=== PATIENT | female | born 1955 | race Caucasian/White ===

== ENCOUNTER 2017-01-14 12:29 | Inpatient (IN) | payer BC ==
[2017-01-14] MEDS ORDERED: ISOVUE-370 76%-LOCM 1 ML ONE (13:02)
[2017-01-14 13:06] LABS: #Eosinphils 0.1 thou/uL (0.0-0.7); #Lymphocytes 1.4 thou/uL (1.20-3.40); #Neutrophils 8.1 thou/uL (1.40-6.50); %Basophils 0.3 % (0.0-1.0); %Eosinophils 1.2 % (0.0-10.0); %Lymphocytes 13.4 % (21.0-51.0); %Monocytes 9.5 % (0.0-10.0); Hematocrit 33.7 % (36.0-47.0); Mean Platelet Volume 5.3 fL (7.4-10.4); Red Blood Cell (RBC) Count 3.89 mill/uL (4.20-5.40); White Blood Cell (WBC) Count 10.7 thou/uL (4.8-10.8)
[2017-01-14 13:30] LABS: Anion Gap 14 mmol/L (10-20); BUN (Urea Nitrogen) 10 mg/dL (9.8-20.1); Calc. Creatinine Clearance 0 mL/min (70-130); Carbon Dioxide 27 mmol/L (23-31); Chloride 99 mmol/L (98-107); Estimated GFR-MDRD Greater than 90
[2017-01-14 13:31] LABS: ALT (SGPT) 16 U/L (8-55); AST (SGOT) 13 U/L (5-34); Alkaline Phosphatase 93 U/L (40-150); Bilirubin, Total 0.6 mg/dL (0.2-1.2); CK (CPK) 29 U/L (29-168); Calcium 9.6 mg/dL (7.8-10.44); Globulin 3.7 g/dL (2.4-3.5); Lipase Less than 4 U/L (8-78); Protein, Total 7.3 g/dL (6.0-8.3)
[2017-01-14 13:35] LABS: Troponin I Less than 0.010 ng/mL (< 0.028)
--- NOTE | 2017-01-14 13:56 | RAD ---
CHEST ONE VIEW: History: Dyspnea. Chest pain. Comparison: 12-02-16 FINDINGS: Cardiac silhouette is magnified by projection. Pulmonary vasculature is unremarkable. Linear atelect asis is now present at each lung base. Mediastinum is midline with aortic calcifications. Right side d aortic arch is again demonstrated. night monitor leads overlie the chest. IMPRESSION: Interval improvement in bibasilar atelectasis. POS: LIZA
[2017-01-14] MEDS ORDERED: Metoprolol Tartrate 5 MG/5 ML VIAL ONE ×3 (15:06→18:28)
[2017-01-14] MEDS ORDERED: Ketorolac Tromethamine 30 MG/ML VIAL ONE ×2 (15:12→17:54)
--- NOTE | 2017-01-14 16:17 | CT ---
CT PULMONARY ANGIOGRAM WITH IV CONTRAST AND 3D POSTPROCESSIN01/14/17 HISTORY: Chest pain. FINDINGS: There is good contrast opacification of the pulmonary artery vasculature without filling defects to suggest pulmonary embolism. A pericardial effusion is present. There are small bilateral pleural effusions with adjacent infiltr ation/atelectatic changes (left greater than right). A right sided aortic arch and descending thorac ic aorta and aberrant left subclavian artery are seen. Prominent mediastinal lymph nodes are stable since 11/25/14. There are degenerative changes in the spine. IMPRESSION: 1. No CT evidence of pulmonary embolism. 2. 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 3. Pericardial effusion. 4. Bilateral small pleural effusions with adjacent atelectatic changes/infiltrates, left larger than right. POS: LIZA
[2017-01-14 19:11] LABS: Troponin I Less than 0.010 ng/mL (< 0.028)
[2017-01-14] MEDS ORDERED: Labetalol HCl 100 MG/20 ML VIAL SLOW IVP PRN (19:38)
[2017-01-14] MEDS ORDERED: Ondansetron HCl/PF 4 MG/2 ML Vial IVP PRN (19:52)
[2017-01-14] MEDS ORDERED: Ondansetron ODT 4 MG TAB SL PRN (19:52)
[2017-01-14 20:26] VITALS: BMI 28.0
[2017-01-14] MEDS: Atorvastatin Calcium 40 MG TAB PO SCH (21:18)
[2017-01-14] MEDS: traMADol HCl 50 MG TAB PO PRN (21:19)
[2017-01-14] MEDS: Colchicine 0.6 MG TAB PO SCH (21:24)
[2017-01-14 21:26] LABS: Troponin I Less than 0.010 ng/mL (< 0.028)
--- NOTE | 2017-01-15 01:00 | HP ---
DATE OF ADMISSION: 01/14/2017 PRIMARY CARE PHYSICIAN: Cheng Golden D.O. CHIEF COMPLAINT: Chest pain with deep breaths. HISTORY OF PRESENT ILLNESS: This is a 61-year-old female with a past medical history of h ypertension, hyperlipidemia, and GERD, who presents with chest pain for a couple of months. This armas s been worked up previously including Cardiology and no cause was found. Today, however in the [facility] room, she was found to have pericardial effusion and pleural effusion on chest CT. She does h ave chest pain with deep breaths. In the emergency room, she was found to have normal troponin leve ls as well as a normal EKG. ALLERGIES: 1. LEXAPRO. 2. EFFEXOR. MEDICATIONS: 1. Tramadol 50 mg p.o. b.i.d. p.r.n. severe pain. 2. Prilosec 20 mg p.o. daily. 3. Hydrochlorothiazide 25 mg p.o. daily. 4. Aspirin 81 mg p.o. daily. 5. Nadolol 40 mg p.o. at bedtime. 6. Clonidine 0.1 mg p.o. b.i.d. p.r.n. systolic blood pressure over 170. 7. Losartan 50 mg p.o. daily. 8. Lipitor 40 mg p.o. at bedtime. PAST MEDICAL HISTORY: 1. Hypertension. 2. Hyperlipidemia. 3. Gastroesophageal reflux disease. PAST SURGICAL HISTORY: 1. Cardiac catheterization with Dr. Streeter. 2. Total hysterectomy. FAMILY HISTORY: Coronary artery disease. SOCIAL HISTORY: She is a former smoker, quit almost 20 years ago. Denies alcohol and illicit drugs . REVIEW OF SYSTEMS: General: Denies fever, weight change, appetite change. HEENT: Denies headache , vision changes, sore throat. Skin: No rashes or lesions. Cardiovascular: Reports chest pain, e specially with deep breaths. Denies palpitations. Respiratory: Denies shortness of breath and cou gh. Gastrointestinal: Denies nausea, vomiting, abdominal pain, diarrhea, constipation. Genitourin carlin: Denies dysuria, hematuria, and discharge. Musculoskeletal: Denies joint pain and stiffness. Neurologic: Denies syncope and dizziness. PHYSICAL EXAMINATION: VITAL SIGNS: Blood pressure 188/103, pulse 95, respirations 15, oxygen saturation 94% on room air, temperature 97.3. GENERAL: Alert and oriented x3, in no acute distress. SKIN: No rashes or lesions. HEENT: Normocephalic. Pupils are equally round and reactive to light. Extraocular muscles are int act. Moist mucous membranes with a nonerythematous throat. HEART: Regular rate and rhythm. No murmurs. LUNGS: Faint friction rub on left side. No wheezes or rales. GASTROINTESTINAL: Nontender, nondistended. Bowel sounds heard throughout. MUSCULOSKELETAL: Normal strength and range of motion. NEUROLOGICAL: Cranial nerves II through XII intact. Sensation within normal limits. LABORATORY DATA: White blood cell count 10.7, hemoglobin 11.2, hematocrit 33.7, MCV 86.5, platelets 425. Sodium 136, potassium 3.8, chloride 99, carbon dioxide 27, BUN 10, creatinine 0.59, glucose 96, calc ium 9.6, total bilirubin 0.6, AST 13, ALT 68, alkaline phosphatase 93. Creatine kinase 29, CK-MB 0. 6, troponin less than 0.010, total protein 7.3, albumin 3.6, lipase normal. Chest x-ray improvement amount of bibasilar atelectasis compared to about [address] nik ws no pulmonary embolism. There is evidence of pericardial effusion and bilateral small pleural eff usions. ASSESSMENT AND PLAN: 1. Chest pain likely secondary to pericardial effusion. We will consult Cardiology. She is stable at this time. EKG is normal as well as cardiac enzymes. 2. Small bilateral pleural effusions. We will obtain some labs studies and consult Pulmonology. 3. Hypertension. Her blood pressure is elevated at this time, we will start her on her home medica tions and provide labetalol p.r.n. for systolic blood pressure greater than 180. 4. Hyperlipidemia. Continue Lipitor. 5. Gastroesophageal reflux disease. We will give pantoprazole while in the hospital. 6. Place on observation on telemetry.
[2017-01-15] MEDS: Nadolol 40 MG TAB PO SCH (05:17)
[2017-01-15] MEDS: traMADol HCl 50 MG TAB PO PRN ×4 (06:08→22:23)
[2017-01-15] MEDS ORDERED: Furosemide 40 MG/4 ML VIAL SLOW IVP SCH ×2 (08:45→13:30)
--- NOTE | 2017-01-15 08:47 | PRG ---
DATE OF SERVICE: 01/15/2017 SUBJECTIVE: This is a 61-year-old female patient with a history of hypertension and hyperlipidemia who has had onset of chest pain and shortness of breath about 6 weeks ago. She was found to have a small pericardial effusion in 11/2016. Workup has been initiated including labs and a CT, follow up with Cardiology. She over the past few weeks has been progressively worsening with increased shortness of breath, increased pain with ambulation and deep breaths. She recently saw Dr. Streeter this past week who felt like there was a rheumatological etiology causing her pain. Referral had been made, but she had not been able to see the construction management instructor yet. Over the past few days her pain worsened. She is becoming more dyspneic with dyspnea on exertion and presented to the emergency department yesterday and found to have both a pericardial effusion as well as a pleural effusion. Today, she is feeling some better with analgesia from the ER, she is ambulating in the room. She continues to have a pulse ox down to 93% on room air. OBJECTIVE: VITAL SIGNS: Temperature 99.0, pulse of 99, respirations 16, blood pressure 174 /82, pulse ox is 93% on room air. GENERAL: She is awake and alert, in no acute distress. She does have some dyspnea after walking to the bathroom. HEENT: Mucosa is moist. NECK: Supple. HEART: Regular rate and rhythm with a 2/6 systolic ejection murmur. LUNGS: With rales at the bases. ABDOMEN: Soft. EXTREMITIES: With no edema. LABORATORY: Laboratory data has been reviewed. Echocardiogram was done this morning, but is pending. Sed rate from 12/19/2016 was elevated at 28, a rheumatoid factor and TIAGO screen were negative on 11/27/2016. ASSESSMENT AND PLAN: 1. This is a 61-year-old female patient with persistent pericardial effusion, now with a pleural effusion with worsening pain and shortness of breath. I agree with admission. Awaiting echocardiogram as well as Cardiology and Pulmonary evaluation due to her decompensation of her symptoms and illness 2. Bilateral pleural effusions, await Pulmonary evaluation for potential thoracentesis versus other workup. 3. Hypertensive urgency. Doing better on IV Labetalol. We will continue her home meds as well as labetalol p.r.n. at this time. Will start Clonidine prn as well. 4. Gastroesophageal reflux disease, on pantoprazole. MTDD
[2017-01-15] MEDS ORDERED: Hydrochlorothiazide 25 MG TAB PO SCH (09:00)
[2017-01-15] MEDS ORDERED: Losartan Potassium 25 MG TAB PO SCH (09:00)
[2017-01-15] MEDS: Amlodipine 5 MG TAB PO SCH (09:09)
[2017-01-15] MEDS: Losartan Potassium 25 MG TAB PO SCH (09:10)
[2017-01-15] MEDS: Aspirin 81 mg Enteric Coated Tablet PO SCH (09:10)
[2017-01-15] MEDS: Colchicine 0.6 MG TAB PO SCH ×2 (09:10→22:01)
--- NOTE | 2017-01-15 12:52 | CON ---
DATE OF CONSULTATION: 01/15/2017 PRIMARY CARE PROVIDER: Dr. Anand [place] PRIMARY RAG PRODUCTION WORKER: Dr. Streeter REFERRING PHYSICIAN: Dr. Eulalio Pelayo REASON FOR CARDIOLOGY CONSULTATION: Pericardial effusion. HISTORY OF PRESENT ILLNESS: Ms. Muse is a 61-year-old female with a past medical history of hypertension and hyperlipidemia. The patient presented to ER for a sharp chest pain for a few months. She started having sharp pain in her mid sternal area since end of September 2016. She was evaluated at [facility] emergency department. She was given nitroglycerin which did not improve her symptoms. She was given some medication which she cannot remember, in the ER at [facility] which improve her symptoms for 1 month. However, at the end of October she started having same symptoms of the sharp pain in her chest which became worse when she lays down on the bed or take a deep breath and improves when she sits up. She had a chest CT and a blood culture by the patient's primary care doctor, which revealed patient had some degree of pericarditis. However, her manager transmission reviewed her CT scan results and she was told she did not have any pericarditis, but possible some autoimmune disease and recommended to follow up with a brusher and shearer for possible autoimmune system, possible lupus. She has not seen the brusher and shearer at this moment. She was given 2 treatment of steroids and 1 treatment of some medication which she cannot remember, but those medications have not improved the patient's symptoms. Some time she started having shortness of breath with exertion for 1 month. She was sent to the emergency department by her primary care physician for further evaluation and treatments. She also experienced diaphoresis every night for 3 weeks. During the initial Cardiology consult assessment the patient still complained of mild sharp pain and/or discomfort with breathing; however, she can go to bathroom without any shortness of breath or any pain or any cardiac complaints. Her primary manager transmission performed a stress test for this patient in 07/2016 for surgery clearance which was normal. She underwent a cardiac catheterization over 10 years ago for chest pain, which revealed normal coronary arteries according to the patient's report. PAST MEDICAL HISTORY: 1. Hypertension. 2. Hyperlipidemia. 3. Gastroesophageal reflux disease. PAST SURGICAL HISTORY: 1. Cardiac catheterization by Dr. Streeter about 10 years ago. 2. Total hysterectomy. FAMILY HISTORY: The patient's maternal grandfather on maternal side due to a myocardial infarction at age of 49 and her mother due to coronary artery disease at the age of 63. There is no family history of diabetes, hypertension or stroke. SOCIAL HISTORY: She is a former smoker and she quit about 20 years ago. She denies any alcohol or illicit drug abuse. ALLERGIES: She is allergic to LEXAPRO, EFFEXOR. CURRENT MEDICATIONS: Tramadol 50 mg twice a day p.r.n. for severe pain in her chest, Prilosec 20 mg daily, hydrochlorothiazide 25 mg daily, aspirin 81 mg daily. Nadolol 40 mg at bedtime, clonidine 0.1 mg b.i.d. as needed for systolic blood pressure more than 170, losartan 50 mg once a day, Lipitor 40 mg once a day. REVIEW OF SYSTEMS: The following complete review of systems was negative, unless otherwise mentioned in the HPI or below. CONSTITUTIONAL: With weight loss or gain, sense of well being, ability to conduct usual activities, exercise tolerance. SKIN: Rash, itching, change in hair growth or loss, nail changes, breast lumps , tenderness, swelling, nipple discharge. EYES: No vision changes, double vision, tearing, blind spots, pain. ENT: Headaches, vertigo, dizziness, lightheadedness, nasal bleeding or obstruction or discharge. She wears total dentures, but denied gingival bleeding. NECK: Neck stiffness, pain, tenderness, mass in the thyroid or other areas. CARDIOVASCULAR: Palpitations, syncope, no orthopnea, nocturnal dyspnea, edema, cyanosis, heart murmur, claudication. RESPIRATORY: Wheezing, stridor, cough, hemoptysis, fever. GASTROINTESTINAL: She does not have a good appetite for a few weeks, but negative to dysphagia, indigestion, abdominal pain, heartburn, nausea, vomiting , jaundice, constipation, or diarrhea, blood in her stool, recent change in the bowel habit. GENITOURINARY: No urgency, frequency, dysuria, nocturia, hematuria, polyuria, oliguria, unusual color of urine. MUSCULOSKELETAL: Pain, swelling, redness or heat on muscle or joint, limitation of motion, muscular weakness, atrophy, cramps. NEUROLOGIC: Conversion, paralysis, tremor, incoordination. Difficulty with memory or speech. PSYCHIATRIC: She has felt depressed for a couple months due to her current condition, but negative to emotional problem, depression, anxiety, previous psychiatric care, unusual perceptions, hallucinations. PHYSICAL EXAMINATION: VITAL SIGNS: Blood pressure 174/79, heart rate 86 with sinus rhythm, temperature 98.6, respiratory rate 16, O2 sat 93% with room air. GENERAL: Well-developed, well-nourished without any acute distress. HEAD: Normocephalic, atraumatic. EYES: Extraocular muscle movements are intact. ENT: Oral and nasal mucosa are moist without lesion. NECK: No JVD. Neck supple, normal range of motion. LUNGS: Clear to auscultation bilaterally, no wheezing, rales or rhonchi noted. CARDIOVASCULAR: Regular rate and rhythm. Normal S1, S2. There are no S3 or S4 , no significant murmur, heaves, thrill, bruit or rub noted. EXTREMITIES: 2+ in the bilateral dorsalis pedis pulses, posterior tibial, and popliteal arteries. Posterior pulses are present without bruit or thrill. No edema in the bilateral lower extremities. ABDOMEN: Soft, nontender or mass to palpate, nondistended. Bowel sounds are present. MUSCULOSKELETAL: Able to move all extremities. SKIN: Warm and dry. No skin rash, lesion or bruise noted. NEUROLOGIC: Alert, oriented x4, awake, normal affect, no focal deficits. PSYCHIATRIC: Mood and affect normal. EKG: Unfortunately, there are no 12-lead EKG in her chart; however, telemetry recorded from records showing sinus rhythm with heart rate 80s. There are no significant ID depression or ST segment change. LABORATORY DATA: WBC 10.7, hemoglobin 11.2, hematocrit 33.7, platelets 424, neutrophil 8.1. Sodium 136, potassium 3.8, BUN 10, creatinine 0.59. Uric acid 3.8. AST 13, ALT 16, CK-MB 0.6, troponin less than 0.010 x3. Albumin is 3.6, globulin 3.7, lipase is less than 4. TSH is 0.8797. CTA in the chest revealed no evidence of pulmonary embolus, pericardial effusion , but it does reveal pericardial effusion and bilateral small pleural effusion, left side is larger than the right side. ASSESSMENT AND PLAN: 1. Chest pain, possible secondary to pericardial effusion. EKG from the telemetry recording shows no significant ID depression or ST segment change; however, the patient most likely has a pericardial effusion due to the patient' s current symptoms and echocardiogram result which shows some amount of pericardial effusion. She is on colchicine 0.6 mg twice a day. If her symptoms do not improve with the current treatment, it is possible she might have to undergo pericardiectomy in the future. 2. Bilateral pleural effusion, left side is larger than the right side. Pulmonary consult was ordered by primary care doctor. 3. Hypertension. Her blood pressure is elevated this morning. The patient's primary care doctor already increased the patient's losartan to 100 mg once a day today. We would like to continue to monitor and adjust patient's blood pressure medicine as needed as appropriate. 4. Hyperlipidemia. She is on the statin medication. 5. Gastroesophageal reflux disease. The patient on Protonix. We would like to continue to monitor. Thank you very much for allowing Cardiology Service to participate in the care of this patient. We will follow along with the patient's care team and make further recommendations as appropriate. MISAEL
--- NOTE | 2017-01-15 13:28 | EKG ---
Test Reason : Blood Pressure : / mmHG Vent. Rate : 083 BPM Atrial Rate : 083 BPM P-R Int : 144 ms QRS Dur : 084 ms QT Int : 358 ms P-R-T Axes : 033 -27 020 degrees QTc Int : 420 ms Normal sinus rhythm Possible Left atrial enlargement Septal infarct (cited on or before 14-JAN-2017) Nonspecific ST-T changes Abnormal ECG When compared with ECG of 14-JAN-2017 12:36, (Unconfirmed) Nonspecific T wave abnormality now evident in Lateral leads Confirmed by DR. Esther JUAN (3) on 01/15/2017 1:27:56 PM Referred By: CHAVO Confirmed By:DR. Esther JUAN
--- NOTE | 2017-01-15 13:44 | CON ---
DATE OF CONSULTATION: 01/15/2017 Please refer to the notes already dictated by the nurse practitioner, Beba. DATE OF ADMISSION: 01/14/2017 INDICATION FOR CONSULTATION: A 61-year-old female with chest pain. HISTORY OF PRESENT ILLNESS: This lady who is a very pleasant 61-year-old female , has been complaining of some chest discomfort, which is new for approximately 2 months ago. She underwent a cardiac catheterization about 10 years ago and then had a repeat cardiac catheterization in July of this year as part of preop evaluation prior to undergoing, I believe tummy tuck and also breast augmentation, actually I think they were just lifted and there were no implants performed. The cardiac catheterization apparently was unremarkable. According to the patient, she had no coronary artery disease. She does have family history of heart disease, but none has been found in her, but approximately at end of September, she started noticing sudden onset of chest discomfort, which was worse with lying down and with deep inspiration mainly. At that time, she was treated with steroids, thinking this was pleurisy. She did recover from that and started feeling much better. The pain actually was radiating also to her left arm at that time, which she describes as being a sharp pain. The pain recurred about a month later. She actually had relief, the first time was about the first 1-2 days, but then recurred about a month later. She was seen at [facility] and was given nitroglycerin without any relief. She then was seen by the primary care physician and treated again with I believe nonsteroidals and steroids, but she had bad dreams with the steroids and these are discontinued and she was treated with colchicine and ibuprofen. She has had no relief after 2 weeks of being on these medications. She said the pain is sharp with inspiration. It radiated to the shoulders or upper back area and she has been unable to function due to the significance of the pain. She is unable to lie down. I think she was seen also by Cardiology at that time again and did not feel that she had pericarditis, it was felt that she may have some type of autoimmune disorder. I do not know what workup has been done as far as her autoimmune disorder is concerned to evaluate to see whether or not she does have any autoimmune disorder. I did not see that these have been ordered, but may have been done at an outside facility or by the primary care physician. In effect, she presented to the emergency room after the physician's office still complaining of chest discomfort. Chest x-ray showed a possible small effusion and then she underwent CT scan, which did showed pericardial as well as pleural effusions. She was admitted to the hospital and is being treated at this time with colchicine alone. The echocardiogram also was performed; this does show a mild pericardial effusion mainly on the left side. There is no evidence of tamponade. Also, please note that she did complain of increasing shortness of breath and fatigue. She says she is unable to walk very far even due to the pain, when she starts getting short of breath, then she has more pain. She is in the hospital at this time and is very uncomfortable when she lies down, but is relatively comfortable when she is sitting up. On examination today, she does have a significant pericardial friction rub, which is compatible with pericarditis. This is most noted in the right parasternal area in approximately the third and fourth intercostal space. This appears to be almost a 3-part pericardial friction rub. Her EKG did not show any acute changes to indicate pericarditis, but otherwise symptoms and pericardial friction rub were certainly indicating this lady has pericarditis. She did have improvement in the past after being treated with steroids and NSAIDs. IMPRESSION: At this time is acute on chronic pericarditis of uncertain etiology. At this time, we will continue to treat her with colchicine. In the future, she may need to be on long-term steroids. She did not have very good results with recent steroid treatment, but did have treatment in the past with Medrol Dosepak and did not have any bad symptoms associated with this or side effects. She said she had bad dreams associated with her p.o. steroids on the last treatment, but if she does not improve significantly within the next few days being on colchicine, then the next would be add Medrol Dosepak or steroids at low dose, which may suppress the inflammation. She will need to be worked up for etiologies of her pericarditis if this has not already been undertaken. I cannot elicit from her history any recent or any past history of any significant inflammations or infections that might cause this pericarditis. She has had no previous open heart surgery and no pericardiocentesis that we are aware of. She only had a cardiac catheterization in the past, which would not cause an inflammatory reaction of this nature. If we cannot control the inflammation, then she eventually may need to undergo a pericardiectomy to resolve her symptoms. MISAEL
--- NOTE | 2017-01-15 14:56 | CON ---
DATE OF SERVICE: 01/15/2017 SERVICE: Pulmonary Medicine. REASON FOR CONSULTATION: Bilateral pleural effusion. HISTORY OF PRESENT ILLNESS: The patient is a 61-year-old white female with past medical history sig nificant for essentially nothing. Roughly 3 months ago, she had crushing chest discomfort. Because she previously had a normal stress evaluation previously, no cardiac catheterization was performed. She did not have any findings consistent with acute ischemic changes on the EKG. This was all don e at [facility]. Ultimately, she was ruled out and subsequently discharged home. She continue d to have persistent chest discomfort, which was worse on lying down. She went to see her primary c are physician who gave her a shot of steroids. This actually improved some of her discomfort for a short period of time, but roughly one month later, the same discomfort came back. She has presented back to the hospital for evaluation of acute chest discomfort. On this evaluation, she was determi rosemarie to have bilateral pleural effusions as well as pericardial effusion. She currently denies any f genaro, chills, nausea, vomiting or diarrhea. She has a little bit of dyspnea, which is much worse w henever she is lying down or when she exerts herself. She has no known history of inflammatory pros theses like lupus. PAST MEDICAL HISTORY: 1. Hypertension. 2. Dyslipidemia. 3. Gastroesophageal reflux disease. PAST SURGICAL HISTORY: 1. Cardiac catheterization by Dr. Streeter. 2. Total hysterectomy. FAMILY HISTORY: Noncontributory. SOCIAL HISTORY: Negative for alcohol, tobacco or illicit drug use currently. She has no exposure t o chemicals, asbestosis, or tuberculosis. She has a [id number] history of smoking, but quit over 20 years ago. ALLERGIES: LEXAPRO and EFFEXOR. MEDICATIONS: List of her outpatient medications was reviewed and her inpatient medications were als o reviewed. A couple of small updates were made at this time. REVIEW OF SYSTEMS: General, head, ears, eyes, nose, throat, cardiovascular, respiratory, GI, , mu sculoskeletal, neurologic and skin is negative except as mentioned in the HPI. PHYSICAL EXAMINATION: VITAL SIGNS: Afebrile, pulse 85, blood pressure 190/86, respirations 18, and saturation 96% on room air. HEENT: Normocephalic, atraumatic. Sclerae are white, conjunctivae pink. Oral and nasal mucosa is moist without lesions. LUNGS: Excellent air entry. There is no prolonged expiratory phase, wheezing or rhonchi. Crackles are present throughout bibasilar region. HEART: Normal rate and regular. ABDOMEN: Soft, nontender, nondistended, bowel sounds positive. MUSCULOSKELETAL: No cyanosis or clubbing. There is trace pitting in the bilateral lower extremitie s. NEUROLOGIC: Grossly nonfocal. LABORATORY DATA: WBC 10.7, hemoglobin 11.2, and platelets 424,000. BNP is 261. TSH falls within n ormal limits. Uric acid 3.8. Cardiac enzymes are negative x3. Lipase is unremarkable. Liver func tion studies and basic metabolic profile is unremarkable. IMAGING: CT of the chest demonstrates no evidence of pulmonary embolism. 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 This actually creates some mechanical obstruction about the midesophagus. Pericardial effusion and very small bilateral pleural effusions are present. There are some atelectasis type changes. Very small areas of ground glass opacifications were also identified without any significant pattern of distribution. ASSESSMENT: 1. Chest pain, atypical. 2. Pericardial effusion. 3. Bilateral pleural effusion. PLAN: Agree with the current workup that is in progress. Echocardiogram is currently pending. Ass uming this, does not have significant tamponade physiology, a couple of small doses of Lasix will be provided. This may also help with her elevated blood pressure. The pleural effusions are really t oo small to tap at this time. As such, I will repeat a chest x-ray we get the patient closer to euv olemia which were closed too. Pulmonary or Critical Care will continue to follow for the time being .
[2017-01-15] MEDS: Atorvastatin Calcium 40 MG TAB PO SCH (22:02)
[2017-01-15] MEDS ORDERED: Ondansetron ODT 4 MG TAB PO PRN (22:43)
[2017-01-15] MEDS: Ondansetron HCl/PF 4 MG/2 ML Vial IVP PRN (22:51)
[2017-01-16] MEDS: traMADol HCl 50 MG TAB PO PRN ×3 (03:45→20:28)
[2017-01-16] MEDS: Furosemide 40 MG/4 ML VIAL SLOW IVP SCH (06:06)
--- NOTE | 2017-01-16 08:34 | PRG ---
DATE OF SERVICE: 01/16/2017 SUBJECTIVE: The patient is feeling some better. She has less pain. She is able take deeper breath s, but still has pain with deep inspiration as well as with ambulating in the hallway. She is going to the bathroom without difficulty. She had significant improvement after the Lasix therapy. She is tolerating the colchicine. OBJECTIVE: VITAL SIGNS: Temperature 97.9, T-max of 99.1, pulse of 96, respirations 16, blood pressure 140/72, pulse ox of 93% on room air. GENERAL: She is awake and alert, in no acute distress. Speech is clear. No conversational dyspnea . NECK: Supple. CARDIOVASCULAR: Heart regular rate and rhythm with a soft friction rub to auscultation on the right sternal border. LUNGS: Continues to have rales at her bases. ABDOMEN: Soft. EXTREMITIES: With no edema. LABORATORY DATA: TIAGO and rheumatoid factor are negative again, TSH was normal. AST and ALT are nor mal. BNP was slightly elevated at 261. Uric acid was normal. Echocardiogram per Dr. Goncalves. ASSESSMENT AND PLAN: 1. 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 She has improved with colc hicine therapy. We will continue that at this time. We will discuss with patient and ordered a PPD placement, HIV, a repeat sed rate and CRP as well as hepatitis panel. Potentially can discharge ho me on colchicine at this time with close followup. May need to start steroids as she continues to h ave worsening pain. 2. Hypertensive urgency has improved. Will continue her oral meds and p.r.n. clonidine, probably i mproved with the Lasix as well. Continue close followup. DISPOSITION: Home when okay with Cardiology and Pulmonary.
[2017-01-16] MEDS: Colchicine 0.6 MG TAB PO SCH ×2 (09:49→20:23)
[2017-01-16] MEDS: Aspirin 81 mg Enteric Coated Tablet PO SCH (09:49)
[2017-01-16] MEDS: Losartan Potassium 25 MG TAB PO SCH (09:49)
[2017-01-16] MEDS: Amlodipine 5 MG TAB PO SCH (09:49)
[2017-01-16] MEDS: Nadolol 40 MG TAB PO SCH (09:50)
[2017-01-16] MEDS ORDERED: Tuberculin PPD 0.1 ML VIAL I-DERMAL SCH (11:00)
--- NOTE | 2017-01-16 13:36 | PRG ---
DATE OF SERVICE: 01/16/2017 SERVICE: Pulmonary Medicine INTERVAL HISTORY: The patient is doing absolutely outstanding. With the Lasix and colchicine, her pain is better. Her dyspnea is also much improved. She currently denies any fevers, chills, nausea , vomiting, diarrhea, chest pain. She can lie now at 30 degree angle, no longer has to sit bolt upr ight to avoid discomfort. PHYSICAL EXAMINATION: VITAL SIGNS: Afebrile, pulse 94, blood pressure 128/70, respirations 16, saturation 95% on room air . GENERAL: The patient is awake, alert, no apparent distress. LUNGS: Excellent air entry. Dependent crackles are still present, but much improved. No prolonged expiratory phase or wheezing is appreciated. HEART: Normal rate, regular. ABDOMEN: Soft, nontender, nondistended. Bowel sounds positive. MUSCULOSKELETAL: No cyanosis or clubbing. No pitting in the bilateral lower extremities. NEUROLOGIC: Grossly nonfocal. LABORATORY DATA: ESR is 28. BNP 261, TSH falls within normal limits. TIAGO and rheumatoid factor s creen are unremarkable. IMAGING: Echocardiogram demonstrates normal ejection fraction of 60-65%. There is a small pericard ial effusion with no signs of tamponade. Left atrial dilation is evident. Aortic valve leaflets ar e thickened. Mild to moderate aortic stenosis is present. ASSESSMENT: 1. Pericarditis. 2. Pericardial effusion. 3. Bilateral pleural effusion. 4. Volume overload state. PLAN: We will continue diuresing the patient more slowly. I will repeat laboratories, and a chest x-ray in the morning. This will be a 2 view study. We were trying to reassess whether or not these effusions are getting larger or smaller. I am happy at this point that the patient's discomfort an d breathing is improving.
--- NOTE | 2017-01-16 14:13 | PDOC.CTH ---
Cardiology Progress Note - Subjective The pt seen and examined. No overnight events. No cardiac complaints. Up to chair without SOB or discomfort in her chest. Still complains of mild discomfort in her chest with deep breath - Objective Vital Signs Temp Pulse Resp BP BP Pulse Ox 01/16/17 09:51 97.8 F 94 16 128/70 95 01/16/17 09:49 94 128/70 01/16/17 07:50 97.8 F 94 16 01/16/17 04:00 97.9 F 96 16 140/72 Weight 171 lb 3.2 oz 01/15/17 01/16/17 01/17/17 06:59 06:59 06:59 Intake Total 240 1270 Output Total 800 Balance 240 470 - Physical Examination General/Neuro: alert & oriented x3 Neck: no JVD present Lungs: CTA Heart: RRR Abdomen: soft Extremities: other: (No edema) - Telemetry Telemetry Rhythm: SR 79 - Labs Result Diagrams: 01/14/17 12:57 01/14/17 12:57 Troponin/CKMB CK-MB (CK-2) 0.6 ng/mL (0-6.6) 01/14/17 12:57 Troponin I Less than 0.010 ng/mL (< 0.028) 01/14/17 20:52 - Assessment/Plan 1. Idiopathic Pericarditis - Symptoms improved with Colchicine; 2. Bilat. pleural effusion - Breathing improved with Lasix; managed by blanket winder operator 3. HTN - stable with current medication 4. Hyperlipidemia - On Statin med 5. GERD - On Protonix MAR reviewed Review of Systems - Review of Systems Constitutional: reports: no symptoms reported EENTM: reports: no symptoms reported Respiratory: reports: no symptoms reported Cardiac (ROS): reports: no symptoms reported ABD/GI: reports: no symptoms reported : reports: no symptoms reported Musculoskeletal: reports: no symptoms reported Skin: reports: no symptoms reported
[2017-01-16] MEDS: Atorvastatin Calcium 40 MG TAB PO SCH (20:23)
[2017-01-17 05:37] LABS: #Basophils 0.1 thou/uL (0.0-0.2); #Eosinphils 0.2 thou/uL (0.0-0.7); #Lymphocytes 1.7 thou/uL (1.20-3.40); #Monocytes 1.4 thou/uL (0.11-0.59); #Neutrophils 6.6 thou/uL (1.40-6.50); %Basophils 0.6 % (0.0-1.0); %Eosinophils 1.9 % (0.0-10.0); %Lymphocytes 16.8 % (21.0-51.0); %Monocytes 14.3 % (0.0-10.0); Hematocrit 34.9 % (36.0-47.0); Mean Platelet Volume 5.1 fL (7.4-10.4); Red Blood Cell (RBC) Count 4.16 mill/uL (4.20-5.40); White Blood Cell (WBC) Count 9.9 thou/uL (4.8-10.8)
[2017-01-17] MEDS: Furosemide 40 MG/4 ML VIAL SLOW IVP SCH (05:50)
[2017-01-17 05:51] LABS: Anion Gap 13 mmol/L (10-20); BUN (Urea Nitrogen) 29 mg/dL (9.8-20.1); Calc. Creatinine Clearance 56 mL/min (70-130); Calcium 9.3 mg/dL (7.8-10.44); Carbon Dioxide 30 mmol/L (23-31); Chloride 94 mmol/L (98-107); Estimated GFR-MDRD 41
--- NOTE | 2017-01-17 08:02 | DIS ---
ADMISSION DIAGNOSES: 1. Pericardial effusion. 2. Pleural effusion. 3. Recent diagnosis of pericarditis. 4. Persistent chest pain. 5. Shortness of breath. 6. Hypertensive urgency. DISCHARGE DIAGNOSES: 1. Idiopathic pericarditis. 2. Persistent pleural effusion. 3. Hypertension. 4. Hyperlipidemia. CONSULTATIONS: Dr. Goncalves for Cardiology and Dr. Kaye for Pulmonary. PROCEDURES: Telemetry monitoring. CT of the chest, chest x-ray, echocardiogram. HOSPITAL COURSE: This is a 61-year-old female patient with a history of hypertension and hyperlipid emia who about 2 weeks ago presented to my office with chest pain that was thought to be a pleuritic type pain, but her pain persisted. She had some improvement of her pain with outpatient steroids, but over the past couple months continued to have the chest pain. A CT was done as an outpatient wh ich revealed pericardial effusion. She was seen by her weight clerk who felt like she did not have pericarditis. She continued to worsen and presented to the emergency department for evaluation. An other CT was done. CT angiogram was done this time which revealed persistent pericardial effusion a s well as bilateral pleural effusion. She was seen by Dr. Goncalves who agreed with acute on chronic per icarditis, recommended initiating colchicine therapy. Dr. Kaye saw the patient for the pleural e ffusions and started her on IV Lasix with significant improvement of her fluid overload as well as t he shortness of breath. She slowly improved during her hospitalization. She continued to have some pain with deep respirations, but was able to ambulate in the [place]. Her blood pressure in the emerg ency department was up over 200/100, that improved with adjusting her medications, starting amlodipi ne as well as the Lasix. She was stable for discharge on the day of discharge. DISCHARGE PHYSICAL EXAMINATION: VITAL SIGNS: Temperature 97.5, pulse 86, respirations 18, blood pressure 123/66, pulse ox 95% on 2 liters. She did drop down to 85% on room air yesterday. She was given a trial of room air prior to being discharged home. GENERAL: She is awake and alert, in no acute distress. Speech is clear. No conversational dyspnea . NECK: Supple. HEART: Regular rate and rhythm without murmurs. No friction rub to auscultation. LUNGS: Clear, slight decreased breath sounds at the bases, but no wheeze, rales or rhonchi. ABDOMEN: Soft. EXTREMITIES: With no edema. LABORATORY DATA: HIV was negative, hepatitis screen was negative. Rheumatoid factor was negative. TIAGO was negative. Sed rate was elevated at 82, CRP was elevated at 25, sodium 134, potassium 3.3, chloride 94, CO2 of 30, BUN and creatinine 29 and 1.31, TSH was normal, a repeat chest x-ray was pe nding. DISCHARGE MEDICATIONS: Colchicine 0.6 mg b.i.d. p.r.n. pain, amlodipine 5 mg daily, aspirin 81 mg d aily, Lipitor 40 mg daily, losartan 100 mg daily, metoprolol 40 mg daily, omeprazole 20 mg daily. FOLLOWUP INSTRUCTIONS: She is to have a follow up tomorrow to read her PPD, follow up with Dr. Goncalves in 1 week and follow up in my office in 1-2 weeks [address] Kaye in 1-2 weeks.
[2017-01-17] MEDS: Ondansetron HCl/PF 4 MG/2 ML Vial IVP PRN (09:01)
[2017-01-17] MEDS: Nadolol 40 MG TAB PO SCH (09:04)
[2017-01-17] MEDS: Aspirin 81 mg Enteric Coated Tablet PO SCH (09:04)
[2017-01-17] MEDS: Colchicine 0.6 MG TAB PO SCH (09:04)
[2017-01-17] MEDS: Losartan Potassium 25 MG TAB PO SCH (09:05)
[2017-01-17] MEDS: Amlodipine 5 MG TAB PO SCH (09:05)
[2017-01-17] MEDS: Potassium Chloride 20 MEQ TAB PO SCH ×2 (09:09→13:19)
--- NOTE | 2017-01-17 10:37 | RAD ---
PA AND LATERAL CHEST: Date: 01/17/17 COMPARISON: 01/14/17. HISTORY: Follow-up pleural effusions. FINDINGS: Heart size is within normal limits. Bibasilar pleural and parenchymal changes appear fairly stable a s compared to the prior exam. There is some persistent blunting to the costophrenic angles and poste rior sulci. IMPRESSION: Stable exam. POS: [facility]
--- NOTE | 2017-01-17 12:58 | PDOC.CTH ---
<Beba Muñoz - Last Filed: 01/17/17 12:57> Cardiology Progress Note - Subjective The pt was seen and examined. No overnight events. No cardiac complaints. She stated she can breath much easier and deeper. She still complains of mild discomfort in her chest with deep breath; however, the symptoms is well controlled with current medication per the pt. - Objective Vital Signs Temp Pulse Resp BP BP Pulse Ox 01/17/17 12:00 98.4 F 78 15 118/60 91 L 01/17/17 09:05 86 117/63 01/17/17 07:42 97.8 F 86 18 95 01/17/17 07:41 97.8 F 86 18 117/63 95 01/17/17 04:15 97.5 F L 86 18 123/66 95 Weight 176 lb 6.4 oz 01/16/17 01/17/17 01/18/17 06:59 06:59 06:59 Intake Total 1270 1090 Output Total 800 920 Balance 470 170 - Labs Result Diagrams: 01/17/17 05:06 01/17/17 05:06 Troponin/CKMB CK-MB (CK-2) 0.6 ng/mL (0-6.6) 01/14/17 12:57 Troponin I Less than 0.010 ng/mL (< 0.028) 01/14/17 20:52 - Assessment/Plan 1. Idiopathic Pericarditis - Symptoms improved with Colchicine; 2. Bilat. pleural effusion - Breathing improved with Lasix; KCl replacement; managed by rn wellness 3. HTN - stable with current medication 4. Hyperlipidemia - On Statin med 5. GERD - On Protonix MAR reviewed *When the pt is stable to d/c, the pt will f/u with Dr Goncalves' office within 3- 4wks. Review of Systems - Review of Systems Constitutional: reports: no symptoms reported EENTM: reports: no symptoms reported Respiratory: reports: see HPI Cardiac (ROS): reports: see HPI ABD/GI: reports: no symptoms reported : reports: no symptoms reported Musculoskeletal: reports: no symptoms reported <Nicolas Goncalves - Last Filed: 01/17/17 13:05> Cardiology Progress Note - Objective Vital Signs Temp Pulse Resp BP BP Pulse Ox 01/17/17 12:30 98 F 79 14 115/64 91 L 01/17/17 12:00 98.4 F 78 15 118/60 91 L 01/17/17 09:05 86 117/63 01/17/17 07:42 97.8 F 86 18 95 01/17/17 07:41 97.8 F 86 18 117/63 95 01/17/17 04:15 97.5 F L 86 18 123/66 95 Weight 176 lb 6.4 oz 01/16/17 01/17/17 01/18/17 06:59 06:59 06:59 Intake Total 1270 1090 Output Total 800 920 Balance 470 170 - Labs Result Diagrams: 01/17/17 05:06 01/17/17 05:06 Troponin/CKMB CK-MB (CK-2) 0.6 ng/mL (0-6.6) 01/14/17 12:57 Troponin I Less than 0.010 ng/mL (< 0.028) 01/14/17 20:52 - Assessment/Plan Pt. seen and eval. by me . I agree with the A/P by the FLIGHT AGENT. On exam the friction rub has resolved.
[2017-01-17] MEDS: traMADol HCl 50 MG TAB PO PRN (13:19)
[2017-01-17 15:39] VITALS: BP 138/69; TEMP 99
--- NOTE | 2017-01-17 16:44 | PRG ---
DATE OF SERVICE: 01/17/2017 SERVICE: Pulmonary Medicine. INTERVAL HISTORY: The patient is doing fine from a respiratory standpoint. Her chest discomfort armas s improved. She is not requiring any oxygen and has been able to ambulate up and down the hallways. She has no significant dyspnea with any of these maneuvers. She denies any current fevers, chills , nausea, vomiting, or chest discomfort. PHYSICAL EXAMINATION: VITAL SIGNS: Afebrile, pulse 78, blood pressure 138/69, respirations 12, saturation 92% on room air . GENERAL: Patient is awake, alert, in no apparent distress. LUNGS: Excellent air entry. There are dependent crackles which are still present, slightly. GENITOURINARY: No Richter catheter in place. NEUROLOGIC: Grossly nonfocal. LABORATORY DATA: WBC 9.9, hemoglobin 11.4, and platelets 559,000. TIAGO and rheumatoid factor were b oth unremarkable. Potassium 3.3. Creatinine 1.31 and gently up trending. CRP and BNP are both ubaldo vated. Hepatitis serologies, HIV 1 and 2 were nonreactive. IMAGING: Chest x-ray demonstrates persistent blunting of the bilateral costophrenic angles. Otherw ise, there is no acute cardiopulmonary abnormality identified. ASSESSMENT: 1. Pericarditis, resolving. 2. Pericardial effusion. 3. Bilateral pleural effusions. PLAN: The patient will follow up with me in the outpatient setting in 2-4 weeks with a repeat chest x-ray, so that we can follow up these effusions. Pulmonary will continue to follow if she remains inhouse. From a purely respiratory perspective, she is stable for transition out of the hospital th ough we may need to follow the creatinine. Potassium will be replaced for one dose.
== END 2017-01-17 16:20 | disposition home or self-care (01) | DRG 315 ==
LOC: ERS 12:29 → OBSVTOIN 17:15 → 2SW 17:15 → 2NO 01-15 10:49
PROVIDERS: ADMIT Family Medicine; ATTEND Family Medicine
DX: I30.0 Acute nonspecific idiopathic pericarditis (principal); J90 Pleural effusion, not elsewhere classified; E87.70 Fluid overload, unspecified; I10 Essential (primary) hypertension; I16.0 Hypertensive urgency; E78.5 Hyperlipidemia, unspecified; K21.9 Gastro-esophageal reflux disease without esophagitis; Z87.891 Personal history of nicotine dependence; Z88.8 Allergy status to other drugs, medicaments and biological substances
CPT/HCPCS: 36415; 36416; 71010; 71020; 71275; 80048; 80053; 80074; 82553; 83690; 83880; 84443; 84484; 84550; 85025; 85652; 86038; 86140; 86430; 86580; 87389; 93005; 93010; 93306; 96361; 96374; 96375; 96376; A4216; J1885; J1940; J2405; Q0162

== ENCOUNTER 2017-04-30 13:28 | Outpatient (CLI) | payer BC ==
--- NOTE | 2017-04-30 15:09 | RAD ---
PA AND LATERAL CHEST RADIOGRAPH: Date: 04-30-17 History: Dyspnea. Comparison: 02-04-17 FINDINGS: Cardiac silhouette is mildly enlarged. Pulmonary vasculature is within normal limits. Linear scarring is again seen at the right lung base. Vascular calcifications are again present in the thoracic aort a. Pulmonary vasculature is within normal limits. Left convex curvature of the thoracic spine is agai n noted. There has been no interval change when compared to the prior exam. IMPRESSION: 1. Stable chest without evidence of an acute cardiopulmonary process. 2. Upper limits of normal to borderline cardiomegaly. POS: [facility]
== END 2017-04-30 13:29 | disposition home or self-care (01) ==
LOC: RAD 13:28
PROVIDERS: ATTEND Internal Medicine
DX: R06.00 Dyspnea, unspecified (principal)
CPT/HCPCS: 71046

== ENCOUNTER 2017-05-05 12:38 | Emergency (ER) | payer BC ==
[2017-05-05 13:13] LABS: #Eosinphils 0.1 thou/uL (0.0-0.7); #Lymphocytes 2.5 thou/uL (1.20-3.40); #Monocytes 1.4 thou/uL (0.11-0.59); #Neutrophils 12.8 thou/uL (1.40-6.50); %Basophils 0.2 % (0.0-1.0); %Eosinophils 0.5 % (0.0-10.0); %Monocytes 8.2 % (0.0-10.0); %Neutrophils 76.1 % (42.0-75.0); Hemoglobin 13.6 g/dL (12.0-16.0); Mean Corpuscular HGB CONC 33.3 g/dL (32.0-36.0); Mean Corpuscular Hemoglobin 29.3 pg (27.0-31.0); Mean Corpuscular Volume 87.8 fl (81.0-99.0); Mean Platelet Volume 6.7 fL (7.4-10.4); Platelet Count 381 thou/uL (130-400); RBC Distribution Width 15.4 % (11.5-14.5); Red Blood Cell (RBC) Count 4.65 mill/uL (4.20-5.40); White Blood Cell (WBC) Count 16.8 thou/uL (4.8-10.8)
[2017-05-05 13:34] LABS: ALT (SGPT) 19 U/L (8-55); AST (SGOT) 14 U/L (5-34); Albumin 4.4 g/dL (3.4-4.8); Alkaline Phosphatase 65 U/L (40-150); Anion Gap 16 mmol/L (10-20); BUN (Urea Nitrogen) 14 mg/dL (9.8-20.1); Bilirubin, Total 0.4 mg/dL (0.2-1.2); CK (CPK) 17 U/L (29-168); Calc. Creatinine Clearance 0 mL/min (70-130); Calcium 10.2 mg/dL (7.8-10.44); Carbon Dioxide 26 mmol/L (23-31); Chloride 101 mmol/L (98-107); Estimated GFR-MDRD 83; Globulin 3.3 g/dL (2.4-3.5); Glucose 96 mg/dL (80-115); Potassium 3.7 mmol/L (3.5-5.1); Protein, Total 7.7 g/dL (6.0-8.3); Sodium 139 mmol/L (136-145)
[2017-05-05 13:38] LABS: CKMB 0.2 ng/mL (0-6.6); Troponin I Less than 0.010 ng/mL (< 0.028)
--- NOTE | 2017-05-05 14:04 | RAD ---
PA AND LATERAL VIEWS OF CHEST: Date: 05/05/17 HISTORY: Chest pain. FINDINGS/IMPRESSION: Comparison made with exam of 04/30/17. The heart size is borderline. There is blunting of the left lateral costophrenic angle which may eith er be due to scarring or small left pleural effusion. No lobar consolidation or pleural effusions are seen. There are mild atelectatic changes versus infiltrative in the left lower lung. No pneumothorac es are seen. POS: [facility]
[2017-05-05] MEDS ORDERED: Ketorolac Tromethamine 30 MG/ML VIAL ONE (16:06)
[2017-05-05] MEDS ORDERED: Acetaminophen/Codeine 30-300mg Tablet ONE (19:06)
== END 2017-05-05 19:22 | disposition home or self-care (01) ==
LOC: ERS 12:38
DX: R07.9 Chest pain, unspecified (principal); E78.1 Pure hyperglyceridemia; G43.909 Migraine, unspecified, not intractable, without status migrainosus; I10 Essential (primary) hypertension; Z87.891 Personal history of nicotine dependence; Z79.899 Other long term (current) drug therapy
CPT/HCPCS: 36415; 71046; 80053; 82550; 82553; 83605; 83690; 83880; 84484; 85025; 93005; 96374; J1885; J2270

== ENCOUNTER 2018-01-14 10:16 | Outpatient (CLI) | payer BC | END 2018-01-14 10:17 | disposition home or self-care (01) | LOC: BICMAMMO 10:16 | PROVIDERS: ATTEND Family Medicine | DX: Z12.31 Encounter for screening mammogram for malignant neoplasm of breast (principal) | CPT/HCPCS: 77063; 77067 ==

== ENCOUNTER 2018-01-14 13:24 | Outpatient (CLI) | payer BC | END 2018-01-14 13:25 | disposition home or self-care (01) | LOC: ULT 13:24 | PROVIDERS: ATTEND Family Medicine | DX: I31.9 Disease of pericardium, unspecified (principal); I08.3 Combined rheumatic disorders of mitral, aortic and tricuspid valves | CPT/HCPCS: 93306 ==

== ENCOUNTER 2018-02-06 13:20 | Outpatient (CLI) | payer BC ==
[~2018-02-06 13:20] MED LIST: Iopamidol 370 76% 100 ML VIAL ONE
--- NOTE | 2018-02-06 15:57 | CT ---
CT ABDOMEN AND PELVIS WITH AND WITHOUT IV CONTRAST: 02/06/18 HISTORY: Hematuria. Flank pain. FINDINGS: At the inferior pole of the left kidney, a lobular calcification within a nondilated calyx measures u p to 1.1 cm. At the inferior pole of the right kidney, two tiny calcifications are each approximately 0.1 cm greatest diameter. Prominent right extrarenal pelvis is again demonstrated. No other filling defects are apparent within the urinary system on the delayed images. Horseshoe configuration of the kidney is again demonstrated with the right ureter crossing midline and joining the left just below the junction of the inferior renal poles. There is also incomplete rotation of the kidneys. Prominent calcification throughout the arterial structures. Other solid organs are intact with annula r configuration of the pancreas again demonstrated. Degenerative changes of the lumbar spine. No evid ence of bowel obstruction. IMPRESSION: 1. Horseshoe kidney. Large calcification at the inferior pole of the left kidney. Tiny right emy al calcifications. No evidence of urinary tract obstruction. 2. Atherosclerosis. POS: [facility]
== END 2018-02-06 13:21 | disposition home or self-care (01) ==
LOC: BICCT 13:20
PROVIDERS: ATTEND Urology
DX: R31.0 Gross hematuria (principal); Q63.1 Lobulated, fused and horseshoe kidney; N28.89 Other specified disorders of kidney and ureter; I70.90 Unspecified atherosclerosis
CPT/HCPCS: 74178

== ENCOUNTER 2018-05-27 00:25 | Outpatient (CLI) | payer MEDICARE ==
[2018-05-27 09:25] LABS: Hemoglobin 12.4 g/dL (12.0-16.0); Mean Corpuscular HGB CONC 32.4 g/dL (32.0-36.0); Mean Corpuscular Hemoglobin 28.7 pg (27.0-31.0); Mean Corpuscular Volume 88.5 fL (78.0-98.0); Mean Platelet Volume 6.8 fL (7.4-10.4); Platelet Count 247 thou/uL (130-400); RBC Distribution Width 13.5 % (11.5-14.5); Red Blood Cell (RBC) Count 4.33 mill/uL (4.20-5.40); White Blood Cell (WBC) Count 8.1 thou/uL (4.8-10.8)
[2018-05-27 09:52] LABS: Anion Gap 13 mmol/L (10-20); BUN (Urea Nitrogen) 21 mg/dL (9.8-20.1); Calc. Creatinine Clearance 0 mL/min (70-130); Calcium 9.4 mg/dL (7.8-10.44); Carbon Dioxide 26 mmol/L (23-31); Chloride 107 mmol/L (98-107); Estimated GFR-MDRD 84; Glucose 90 mg/dL (80-115); Potassium 3.7 mmol/L (3.5-5.1); Sodium 142 mmol/L (136-145)
[2018-05-27 10:26] LABS: INR-International Normal Ratio 0.9; PTT 31.2 SEC (22.9-36.1); Prothrombin Time 12.7 SEC (12.0-14.7)
[2018-05-27 11:06] LABS: Bilirubin Negative (Negative); Blood, Urine Negative (Negative); Glucose, Urine (Dipstick) Negative (Negative); Leukocyte Negative (Negative); Nitrite Negative (Negative); Protein, Urine (Dipstick) Negative (Neg-Trace); Urobilinogen 0.2 mg/dL (0.2-1.0); pH, Urine 6.5 (5.0-9.0)
[2018-05-27 11:08] LABS: Clarity CLEAR (Clear)
--- NOTE | 2018-05-27 11:08 | RAD ---
CHEST TWO VIEWS: History: Pre-operative evaluation for surgery scheduled 06-04-18. Comparison: 05-05-17 FINDINGS: Stable appearing right sided aortic arch and descending aorta. Linear parenchymal changes in the lung bases showing some improvement from the prior study, evidence for some chronic change. No confluent pneumonia, overt edema, cardiomegaly or other acute process. IMPRESSION: Minimal linear and chronic changes in the bases. Stable right sided aortic arch and descending aorta. No pneumonia, edema, or other acute process. POS: [facility]
[2018-05-27 11:19] LABS: Bacteria/HPF 1+ HPF (None Seen); Hyaline Casts/LPF NONE SEEN LPF (0-3 Hyaline); RBC/HPF None Seen HPF (0-3); Squamous Epithelial 0-3 HPF (0-3); WBC/HPF None Seen HPF (0-3)
--- NOTE | 2018-05-27 17:07 | EKG ---
Test Reason : Blood Pressure : / mmHG Vent. Rate : 064 BPM Atrial Rate : 064 BPM P-R Int : 136 ms QRS Dur : 096 ms QT Int : 428 ms P-R-T Axes : 053 029 058 degrees QTc Int : 441 ms Normal sinus rhythm Possible Left atrial enlargement Incomplete right bundle branch block Anteroseptal infarct , age undetermined cannot be excluded Abnormal ECG Confirmed by COLIN MUHAMMAD ([id number]) on 05/27/2018 5:06:53 PM Referred By: RUBEN Confirmed By:COLIN MUHAMMAD
== END 2018-05-27 00:26 | disposition home or self-care (01) ==
LOC: LABBT 00:25
PROVIDERS: ATTEND Urology
DX: Z01.818 Encounter for other preprocedural examination (principal); N20.0 Calculus of kidney; Q63.1 Lobulated, fused and horseshoe kidney
CPT/HCPCS: 71046; 80048; 81001; 85027; 85610; 85730; 87086; 93005; 93010

== ENCOUNTER 2018-06-04 06:27 | Day surgery (SDC) | payer MEDICARE ==
[2018-05-27 08:37] VITALS: BMI 25.8
[2018-06-04] MEDS ORDERED: Levofloxacin 500 mg/D5W 100 ml Premix Bag ONE (07:55)
[2018-06-04] MEDS ORDERED: CEFAZOLIN 1 GM VIAL ONE (07:55)
[2018-06-04] MEDS ORDERED: Sodium Chloride 0.9% 100 ML ONE (07:56)
[2018-06-04] MEDS ORDERED: Fentanyl 100 MCG/2 ML VIAL ONE (08:42)
[2018-06-04] MEDS ORDERED: Midazolam HCl 2 mg/2 ml Vial ONE (08:42)
[2018-06-04] MEDS ORDERED: Morphine 2 MG/ML SYRINGE ONE (10:59)
[2018-06-04] MEDS ORDERED: Promethazine HCl 25 MG/ML VIAL ONE (11:12)
[2018-06-04] MEDS ORDERED: hydrALAZINE 20 MG/ML VIAL ONE (12:10)
[2018-06-04] MEDS ORDERED: Lidocaine 1% PF 5 ML VIAL ONE (12:20)
[2018-06-04] MEDS ORDERED: Glycopyrrolate 0.2 MG/ML 5 ML SYRINGE ONE (12:20)
[2018-06-04] MEDS ORDERED: Rocuronium Bromide 10 MG/ML (10ML VIAL) ONE (12:20)
[2018-06-04] MEDS ORDERED: PHENYLEPHRINE-NS 100 MCG/ML 10 ML SYRINGE ONE (12:20)
[2018-06-04] MEDS ORDERED: PROPOFOL 200 MG/20 ML VIAL ONE (12:20)
[2018-06-04] MEDS ORDERED: Ondansetron PF 4 MG/2 ML Vial ONE (12:23)
--- NOTE | 2018-06-04 13:00 | OP ---
DATE OF PROCEDURE: 06/04/2018 PREOPERATIVE DIAGNOSIS: Left renal stone. POSTOPERATIVE DIAGNOSIS: Left renal stone. PROCEDURES PERFORMED: Left ureteroscopy, laser lithotripsy, basket extraction of stone, and placement of a 6 x 26 double-J stent with a string. INDICATION FOR PROCEDURE: Ms. Muse is a 63-year-old white female with a horseshoe kidney with a left lower pole renal stone. The stone was relatively large around a centimeter in size and I had recommended going ahead and removing the stone before it causes significant problem as it would have a low likelihood of spontaneous passage. Risks and benefits of surgery were discussed and she has agreed to proceed forward. DESCRIPTION OF PROCEDURE: After identification of armband and verification of consent, the patient was brought back to the operating room, where she underwent general anesthesia with endotracheal intubation. She was then placed in dorsal lithotomy position and prepped and draped in usual sterile fashion. After appropriate time-out, a lubricated 22-Urdu rigid cystoscope was introduced per urethra into the bladder and attention turned toward the left ureteral orifice. A 0.035 Sensor wire was advanced through the left ureteral orifice up to the level of renal pelvis. The cystoscope was then removed and a dual-lumen catheter was then used to advance over the Sensor wire up to the level of the proximal ureter. A second Amplatz Super Stiff wire was then placed through the second lumen up into the renal pelvis, and the dual-lumen removed. An 11/13 x 36 cm ureteral access sheath was then advanced over the Super Stiff wire up to the level of the proximal ureter. The inner cannula and Super Stiff wire were then removed leaving the outer sheath and Sensor wire in place as a safety wire. A flexible digital ureteroscope was then passed through the ureteral access sheath up into the kidney and deflection was looked down onto the lower pole, where the stone was encountered. Due to the significant amount of flexion necessary to reach the stone, we elected to move the stone to the upper pole, where it would be easier to work on. The 1.9-Urdu ZeroTip Nitinol basket was used to grasp the stone and move it to the upper pole, where it was deposited. The basket was then removed and a 200 micron laser fiber was then brought in. The stone was fragmented on the dusting settings until it was very small. At which point, it was fragmented into approximately three pieces. These pieces were then individually removed using the 1.9-Urdu ZeroTip Nitinol basket. Upon completion, there were no additional fragments that were over 2 mm in size. The additional fragments all were extremely small. The vast majority being in the dust size setting or around a millimeter. All the larger fragments were removed, satisfied, and further pyeloscopy did not demonstrating any other stones. Pull-back ureteroscopy was employed. No additional stones were found within the ureter. The sheath and ureteroscope were then removed and the cystoscope was back backloaded over the Sensor wire back into the bladder. A 6 x 26 double-J stent with string attached was advanced over the Sensor wire up to the level of renal pelvis. The string was removed leaving a good curl in the kidney and a good curl in the bladder. The cystoscope was used to empty the bladder and then removed. The string was affixed to the patient's inner thigh using an OpSite. She was then awakened and taken to PACU for recovery in stable condition. COMPLICATIONS: None. ESTIMATED BLOOD LOSS: Minimal. RETAINED TUBES AND DRAINS: 6 x 26 double-J stent on the left. SPECIMEN: Stone for stone analysis. DISPOSITION: The patient will be discharged home. She will remove her stent by herself on Friday and follow up with me on Friday for a postop check. Job ID: [id number]
== END 2018-06-04 12:40 | disposition home or self-care (01) ==
LOC: SDC 06:27
PROVIDERS: ATTEND Urology
PROC: 0TF48ZZ Fragmentation in Left Kidney Pelvis, Via Natural or Artificial Opening Endoscopic (ICD-10-PCS; principal; 2018-06-04)
PROC: 0T778DZ Dilation of Left Ureter with Intraluminal Device, Via Natural or Artificial Opening Endoscopic (ICD-10-PCS; 2018-06-04)
DX: N20.0 Calculus of kidney (principal); Q63.1 Lobulated, fused and horseshoe kidney; I10 Essential (primary) hypertension; E78.5 Hyperlipidemia, unspecified; E55.9 Vitamin D deficiency, unspecified; G43.909 Migraine, unspecified, not intractable, without status migrainosus; Z87.891 Personal history of nicotine dependence; Z79.82 Long term (current) use of aspirin; Z79.899 Other long term (current) drug therapy; Z88.8 Allergy status to other drugs, medicaments and biological substances
CPT/HCPCS: 52356; 76000; 82365; 88300; C1769; J0360; J0690; J1956; J2001; J2250; J2270; J2405; J2550; J2704; J3010; J7050

== ENCOUNTER 2018-07-31 14:59 | Outpatient (CLI) | payer MEDICARE ==
--- NOTE | 2018-07-31 15:58 | ULT ---
3BILATERAL RENAL ULTRASOUND: 07/31/18 HISTORY: Renal calculi. FINDINGS: The right kidney measures 13 cm in length and the left kidney measures 13.7 cm in length. Mild hydro nephrosis seen on either side. A 6.4 x 4.8 cm right parapelvic cyst is present. There is a 1.5 cm maribell culus in the inferior pole of the left kidney. The urinary bladder is normal. Bilateral ureteral jets are present. The mild bilateral hydronephrosis persisted on the post void images. IMPRESSION: 1. Mild bilateral hydronephrosis. 2. Right parapelvic cyst. 3. Inferior pole calculus on the left. POS: [facility]
== END 2018-07-31 15:00 | disposition home or self-care (01) ==
LOC: BICULT 14:59
PROVIDERS: ATTEND Urology
DX: N13.2 Hydronephrosis with renal and ureteral calculous obstruction (principal); N28.1 Cyst of kidney, acquired
CPT/HCPCS: 76770; 81001; 87077; 87086; 87186

== ENCOUNTER 2019-02-03 08:55 | Emergency (ER) | payer MEDICARE ==
[2019-02-03 09:31] LABS: #Eosinphils 0.2 thou/uL (0.0-0.7); #Lymphocytes 2.2 thou/uL (1.20-3.40); #Monocytes 0.6 thou/uL (0.11-0.59); #Neutrophils 6.2 thou/uL (1.40-6.50); %Basophils 0.4 % (0.0-1.0); %Eosinophils 1.9 % (0.0-10.0); %Lymphocytes 23.7 % (21.0-51.0); %Monocytes 6.5 % (0.0-10.0); %Neutrophils 67.5 % (42.0-75.0); Hemoglobin 13.2 g/dL (12.0-16.0); Mean Corpuscular Hemoglobin 29.1 pg (27.0-31.0); Mean Corpuscular Volume 88.3 fL (78.0-98.0); Mean Platelet Volume 6.9 fL (7.4-10.4); Platelet Count 277 thou/uL (130-400); RBC Distribution Width 13.1 % (11.5-14.5); Red Blood Cell (RBC) Count 4.54 mill/uL (4.20-5.40); White Blood Cell (WBC) Count 9.1 thou/uL (4.8-10.8)
[2019-02-03 09:52] LABS: ALT (SGPT) 17 U/L (8-55); AST (SGOT) 19 U/L (5-34); Albumin 4.6 g/dL (3.4-4.8); Alkaline Phosphatase 82 U/L (40-110); Anion Gap 13 mmol/L (10-20); BUN (Urea Nitrogen) 17 mg/dL (9.8-20.1); Bilirubin, Total 0.3 mg/dL (0.2-1.2); Calc. Creatinine Clearance 0 mL/min (70-130); Calcium 10.1 mg/dL (7.8-10.44); Carbon Dioxide 27 mmol/L (23-31); Chloride 103 mmol/L (98-107); Estimated GFR-MDRD 79; Glucose 101 mg/dL (80-115); Lipase 11 U/L (8-78); Potassium 3.9 mmol/L (3.5-5.1); Protein, Total 7.6 g/dL (6.0-8.3); Sodium 139 mmol/L (136-145)
--- NOTE | 2019-02-03 09:52 | RAD ---
Portable frontal chest radiograph: 02/03/2019 COMPARISON: 01/28/2017 HISTORY: Hypertension FINDINGS: Lungs are clear. Heart and mediastinal contours appear within normal limits. There is ather osclerotic calcification of the thoracic aorta, stable. IMPRESSION: No acute findings.
== END 2019-02-03 10:17 | disposition home or self-care (01) ==
LOC: ERS 08:55
DX: I10 Essential (primary) hypertension (principal); E78.2 Mixed hyperlipidemia; Z87.891 Personal history of nicotine dependence; G43.909 Migraine, unspecified, not intractable, without status migrainosus; Z79.899 Other long term (current) drug therapy
CPT/HCPCS: 71045; 80053; 83690; 84484; 85025; 93005; 94760

== ENCOUNTER 2019-08-13 09:56 | Outpatient (CLI) | payer MEDICARE, OTHER ==
--- NOTE | 2019-08-20 23:25 | EKG ---
Test Reason : Blood Pressure : / mmHG Vent. Rate : 080 BPM Atrial Rate : 080 BPM P-R Int : 134 ms QRS Dur : 088 ms QT Int : 386 ms P-R-T Axes : 040 002 067 degrees QTc Int : 445 ms Normal sinus rhythm Cannot rule out Anterior infarct (cited on or before 27-MAY-2018) Abnormal ECG When compared with ECG of 03-FEB-2019 09:12, Questionable change in initial forces of Septal leads Confirmed by Avani MCRAE ([id number]) on 08/20/2019 11:25:24 PM Referred By: TERESA Confirmed By:Avani MCRAE
== END 2019-08-13 09:57 | disposition home or self-care (01) ==
LOC: LABBT 09:56
PROVIDERS: ATTEND Thoracic Surgery (Cardiothoracic Vascular Surgery)
DX: Z01.818 Encounter for other preprocedural examination (principal); Z11.59 Encounter for screening for other viral diseases; I25.10 Atherosclerotic heart disease of native coronary artery without angina pectoris
CPT/HCPCS: 80048; 85027; 86850; 86900; 86901; 93005; U0003; 87635; 93010

== ENCOUNTER 2019-08-13 11:30 | Inpatient (IN) | payer MEDICARE, OTHER ==
[2019-08-13 13:01] LABS: Hemoglobin 12.2 g/dL (12.0-16.0); Mean Corpuscular Hemoglobin 29.6 pg (27.0-31.0); Mean Corpuscular Volume 89.6 fL (78.0-98.0); Mean Platelet Volume 6.9 fL (7.4-10.4); Platelet Count 292 thou/uL (130-400); RBC Distribution Width 13.2 % (11.5-14.5); Red Blood Cell (RBC) Count 4.14 mill/uL (4.20-5.40); White Blood Cell (WBC) Count 8.7 thou/uL (4.8-10.8)
[2019-08-13 13:23] LABS: Anion Gap 13 mmol/L (10-20); BUN (Urea Nitrogen) 17 mg/dL (9.8-20.1); Calc. Creatinine Clearance 0 mL/min (70-130); Calcium 9.7 mg/dL (7.8-10.44); Carbon Dioxide 25 mmol/L (23-31); Chloride 105 mmol/L (98-107); Estimated GFR-MDRD 82; Glucose 87 mg/dL (80-115); Potassium 3.9 mmol/L (3.5-5.1); Sodium 139 mmol/L (136-145)
[2019-08-13 19:38] LABS: SARS-CoV-2 MS2 Positive; SARS-CoV-2 N Gene Negative; SARS-CoV-2 S Gene Negative; SARS-CoV-2 orf1ab Negative
[2019-08-17] MEDS ORDERED: Albumin 5% 500 ML ONE (06:31)
[2019-08-17] MEDS ORDERED: Dexmedetomidine 200 MCG/2 ML VIAL ONE (06:34)
[2019-08-17] MEDS ORDERED: Midazolam HCl 5 mg/5 ml Vial ONE (06:34)
[2019-08-17] MEDS ORDERED: Vecuronium 10 MG VIAL ONE ×3 (06:34→09:42)
[2019-08-17] MEDS ORDERED: Midazolam HCl 2 mg/2 ml Vial ONE (06:34)
[2019-08-17] MEDS ORDERED: Fentanyl 100 MCG/2 ML VIAL ONE (06:34)
[2019-08-17] MEDS ORDERED: Heparin 10,000 UNITS/1 ML VIAL 30,000 UNITS in Sodium Chloride 0.9% 1,000 ML FS SCH (06:45)
[2019-08-17] MEDS ORDERED: EPHEDRINE 25 MG/5 ML SYRINGE ONE (09:42)
[2019-08-17] MEDS ORDERED: Papaverine 60 MG/2 ML VIAL ONE (09:42)
[2019-08-17] MEDS ORDERED: Nitroglycerin 50 MG/250 ML BOT ONE (09:42)
[2019-08-17] MEDS ORDERED: Ondansetron PF 4 MG/2 ML Vial ONE (09:42)
[2019-08-17] MEDS ORDERED: Aminocaproic Acid 5 GM/20 ML VIAL ONE (09:42)
[2019-08-17] MEDS ORDERED: Lidocaine 2% PF 5 ML VIAL ONE (09:42)
[2019-08-17] MEDS ORDERED: Calcium Chloride 1 GM/10 ML Abboject SYRINGE ONE (09:42)
[2019-08-17] MEDS ORDERED: PHENYLEPHRINE-NS 100 MCG/ML 10 ML SYRINGE ONE (09:42)
[2019-08-17] MEDS ORDERED: Heparin 30,000 units/30 ml VIAL ONE (09:42)
[2019-08-17] MEDS ORDERED: Dexamethasone 20 MG/5 ML VIAL ONE (09:42)
[2019-08-17] MEDS ORDERED: Ketorolac Tromethamine 30 MG/ML VIAL ONE (09:42)
[2019-08-17] MEDS ORDERED: Cardioplegic Soln 1,000 ML BAG ONE (09:42)
[2019-08-17] MEDS ORDERED: Protamine Sulfate 250 MG/25 ML VIAL ONE (09:42)
[2019-08-17] MEDS ORDERED: Glycopyrrolate 0.2 MG/ML 5 ML SYRINGE ONE (09:42)
[2019-08-17] MEDS ORDERED: Sodium Bicarb 50 MEQ/50 ML Abboject 8.4% SYRINGE ONE (09:42)
[2019-08-17] MEDS ORDERED: Thrombin 5000 UNITS/5 ML VIAL ONE (09:42)
[2019-08-17] MEDS ORDERED: Potassium Chloride 60 MEQ/30 ML VIAL ONE (09:42)
[2019-08-17] MEDS ORDERED: Heparin 5,000 UNITS/ML VIAL ONE (09:42)
[2019-08-17] MEDS ORDERED: Lidocaine 1% PF 5 ML VIAL ONE ×2 (09:42)
[2019-08-17] MEDS ORDERED: Post-Op Insulin Drip Protocol IVPB ONE (12:11)
[2019-08-17] MEDS ORDERED: hydrALAZINE 20 MG/ML VIAL SLOW IVP PRN (12:11)
[2019-08-17] MEDS ORDERED: Promethazine HCl 25 MG/ML VIAL IM PRN (12:11)
[2019-08-17] MEDS ORDERED: Nitroglycerin 50 MG/250 ML BOT 250 ML IVPB PRN (12:11)
[2019-08-17] MEDS ORDERED: Mag-Al 1200 mg/1200 mg/30 ML UDCUP PO PRN (12:11)
[2019-08-17] MEDS ORDERED: Bisacodyl 10 MG SUPP PR PRN (12:11)
[2019-08-17] MEDS ORDERED: Morphine 2 MG/ML SYRINGE SLOW IVP PRN (12:11)
[2019-08-17] MEDS ORDERED: DOPamine 400 MG/D5W 250 ML 250 ML IVPB PRN (12:11)
[2019-08-17] MEDS ORDERED: niCARdipine 25 MG in Sodium Chloride 0.9% 250 ML 250 ML IVPB PRN (12:11)
[2019-08-17] MEDS ORDERED: Magnesium 2 GM/50 ML 2 GM in Premix Bag 1 BAG IVPB SCH (12:11)
[2019-08-17] MEDS ORDERED: Fentanyl 100 MCG/2 ML VIAL SLOW IVP PRN ×2 (12:11)
[2019-08-17] MEDS ORDERED: Guaifenesin DM 100-10/5 ML UDCUP PO PRN (12:11)
[2019-08-17] MEDS ORDERED: Ondansetron PF 4 MG/2 ML Vial IVP PRN (12:11)
[2019-08-17] MEDS ORDERED: Norepinephrine 8 MG/0.9% NS 250 ML IVPB PRN (12:11)
[2019-08-17] MEDS ORDERED: Acetaminophen 325 MG TAB PO PRN (12:11)
[2019-08-17] MEDS ORDERED: Bisacodyl 5 MG TAB PO PRN (12:11)
[2019-08-17] MEDS ORDERED: Hetastarch 6% 500 ML 500 ML IVPB PRN (12:11)
[2019-08-17] MEDS: Lactated Ringer's 1,000 ML IV SCH (12:15)
[2019-08-17 12:34] VITALS: BMI 28.8
[2019-08-17 12:36] LABS: #Lymphocytes 1.3 thou/uL (1.20-3.40); #Monocytes 0.5 thou/uL (0.11-0.59); #Neutrophils 12.6 thou/uL (1.40-6.50); %Basophils 0.1 % (0.0-1.0); %Eosinophils 0.3 % (0.0-10.0); %Monocytes 3.6 % (0.0-10.0); Mean Corpuscular HGB CONC 33.4 g/dL (32.0-36.0); Mean Corpuscular Hemoglobin 29.9 pg (27.0-31.0); Mean Corpuscular Volume 89.6 fL (78.0-98.0); Mean Platelet Volume 6.6 fL (7.4-10.4); Platelet Count 223 thou/uL (130-400); RBC Distribution Width 13.1 % (11.5-14.5); Red Blood Cell (RBC) Count 3.69 mill/uL (4.20-5.40); White Blood Cell (WBC) Count 14.5 thou/uL (4.8-10.8)
[2019-08-17] MEDS ORDERED: Insulin Regular 300 UNITS/3 ML VIAL SC PRN (12:37)
[2019-08-17] MEDS ORDERED: HUMULIN R 100 UNITS in Sodium Chloride 0.9% 100 ML IVPB SCH (12:37)
[2019-08-17] MEDS ORDERED: Dextrose 50% Abboject 50 ML SYRINGE SLOW IVP PRN (12:37)
[2019-08-17] MEDS ORDERED: Dextrose 5% in Water 1,000 ML IV PRN (12:37)
[2019-08-17 12:48] LABS: INR-International Normal Ratio 1.1; Prothrombin Time 14.4 sec (12.0-14.7)
[2019-08-17] MEDS: Ketorolac Tromethamine 30 MG/ML VIAL IVP SCH ×3 (12:48→23:05)
[2019-08-17 12:59] LABS: Anion Gap 13 mmol/L (10-20); BUN (Urea Nitrogen) 22 mg/dL (9.8-20.1); Calc. Creatinine Clearance 106 mL/min (70-130); Calcium 7.9 mg/dL (7.8-10.44); Carbon Dioxide 22 mmol/L (23-31); Chloride 110 mmol/L (98-107); Estimated GFR-MDRD 85; Glucose 142 mg/dL (80-115); Potassium 3.6 mmol/L (3.5-5.1); Sodium 141 mmol/L (136-145)
--- NOTE | 2019-08-17 14:34 | RAD ---
CHEST ONE VIEW: 08/17/19 INDICATION: History of open heart surgery. COMPARISON: Prior exam dated 02/03/19. FINDINGS: There is new midline sternotomy changes. There is a left sided thoracostomy tube in place. There is a new right subclavian central venous catheter projecting in the region of the right atrium. There are mediastinal drains overlying the midline. Subsegmental atelectasis involving both lower lobes, right greater than left. No pneumothorax is evident. Osseous structures are similar appearing. IMPRESSION: 1. Bibasilar atelectasis. 2. Postoperative changes as above. POS: [facility]
[2019-08-17] MEDS: CEFAZOLIN 2 GM in Premix Bag 1 BAG IVPB SCH ×2 (15:14→23:04)
[2019-08-17 18:01] LABS: Hemoglobin 10.7 g/dL (12.0-16.0)
[2019-08-17 18:12] LABS: Potassium 3.8 mmol/L (3.5-5.1)
[2019-08-17] MEDS: HYDROcodone/Acetaminophen 5/325 mg Tablet PO PRN (20:23)
[2019-08-17] MEDS: Potassium Chloride 20 MEQ/100 ML PREMIX BAG IVPB PRN (20:25)
[2019-08-17] MEDS ORDERED: Famotidine/PF 20 mg/2ml Vial SLOW IVP SCH (21:00)
[2019-08-18] MEDS: HYDROcodone/Acetaminophen 5/325 mg Tablet PO PRN ×3 (01:24→23:32)
[2019-08-18] MEDS: Lactated Ringer's 1,000 ML IV SCH (04:26)
[2019-08-18 04:36] LABS: #Lymphocytes 1.9 thou/uL (1.20-3.40); #Monocytes 1.1 thou/uL (0.11-0.59); #Neutrophils 8.8 thou/uL (1.40-6.50); %Basophils 0.4 % (0.0-1.0); %Eosinophils 0.2 % (0.0-10.0); %Lymphocytes 16.1 % (21.0-51.0); %Monocytes 9.2 % (0.0-10.0); %Neutrophils 74.2 % (42.0-75.0); Hemoglobin 9.4 g/dL (12.0-16.0); Mean Corpuscular HGB CONC 33.5 g/dL (32.0-36.0); Mean Corpuscular Hemoglobin 30.1 pg (27.0-31.0); Mean Platelet Volume 6.8 fL (7.4-10.4); Platelet Count 194 thou/uL (130-400); RBC Distribution Width 13.2 % (11.5-14.5); Red Blood Cell (RBC) Count 3.11 mill/uL (4.20-5.40); White Blood Cell (WBC) Count 11.8 thou/uL (4.8-10.8)
[2019-08-18 04:55] LABS: Anion Gap 13 mmol/L (10-20); BUN (Urea Nitrogen) 27 mg/dL (9.8-20.1); Calc. Creatinine Clearance 106 mL/min (70-130); Calcium 7.9 mg/dL (7.8-10.44); Carbon Dioxide 23 mmol/L (23-31); Chloride 108 mmol/L (98-107); Estimated GFR-MDRD 85; Glucose 113 mg/dL (80-115); Potassium 3.6 mmol/L (3.5-5.1); Sodium 140 mmol/L (136-145)
[2019-08-18] MEDS: Ketorolac Tromethamine 30 MG/ML VIAL IVP SCH ×4 (05:28→23:31)
[2019-08-18] MEDS: CEFAZOLIN 2 GM in Premix Bag 1 BAG IVPB SCH (06:09)
[2019-08-18] MEDS ORDERED: Bisacodyl 5 MG TAB PO PRN (06:48)
[2019-08-18] MEDS ORDERED: Nitroglycerin 0.4 MG TAB (25 Tab Bottle) SL PRN (06:48)
[2019-08-18] MEDS ORDERED: Mineral Oil ENEMA PR PRN (06:48)
[2019-08-18] MEDS ORDERED: Guaifenesin DM 100-10/5 ML UDCUP PO PRN (06:48)
[2019-08-18] MEDS ORDERED: Acetaminophen 325 MG TAB PO PRN (06:48)
[2019-08-18] MEDS ORDERED: Bisacodyl 10 MG SUPP PR PRN (06:48)
[2019-08-18] MEDS ORDERED: Mag-Al 1200 mg/1200 mg/30 ML UDCUP PO PRN (06:48)
[2019-08-18] MEDS ORDERED: Milk Of Magnesia 30 ML UDCUP PO PRN (06:48)
--- NOTE | 2019-08-18 06:48 | PRG ---
DATE OF SERVICE: 08/18/2019 SUBJECTIVE: The patient had an uneventful night with stable vital signs, although her blood pressure is trending up this morning having been in the 110 to 140 range over night and 160 this morning. Her heart rate is about 90. Chest tube output is a total of about 190 mL since surgery and her urine output has been adequate. She is sitting in the chair this morning with clear lungs. LABORATORY VALUES: Her hemoglobin is 9.4. Her potassium is 3.6. Her creatinine is less than 1. Chest x-ray looks good. PLAN: At this time is for transfer to the floor, begin Coreg today and her Benicar tomorrow. We will stop her IV fluids and stop her glucose monitoring and probably remove her chest tubes later today. Job ID: [id number]
--- NOTE | 2019-08-18 07:05 | OP ---
DATE OF PROCEDURE: 08/17/2019 PREOPERATIVE DIAGNOSES: 1. Coronary artery disease. 2. History of pericarditis. POSTOPERATIVE DIAGNOSES: 1. Coronary artery disease. 2. History of pericarditis. PROCEDURE PERFORMED: Coronary artery bypass graft x3; left internal mammary artery to a 1.25 mm LAD, small radial artery to a 1.5 mm diagonal, saphenous vein to a 1.5 to 2 mm right coronary artery. BEAN ROASTER: Pasha Farris MD. FINDINGS: The patient had a small LAD system. This was also complicated by prior pericarditis and the pericardial cavity was all encased in scar tissue. This made identification of the LAD diagonal system difficult. The patient also has a right-sided aortic arch. DESCRIPTION OF PROCEDURE: After adequate anesthesia had been obtained, the patient was prepped and draped. Dr. Farris harvested a segment of saphenous vein from the left lower thigh while I performed left radial artery harvest after ensuring good collateral flow. The radial was a small vessel, but suitable for the small coronary targets. The arm was then closed in layers, following which a median sternotomy was performed. The patient had some element of pectus excavatum, which was not evident on physical examination. After dividing the sternum, left internal mammary artery was harvested, entering the left pleura in one small area. Following heparinization, mammary was divided distally and passed posterior to the thymus gland. Pericardium was opened sharply and adhesions taken down to allow access to the aorta. The aorta was cannulated just caudal to the takeoff of the left common carotid artery. Arch was not visualized. Right atrium was mobilized enough to cannulate, and after instituting cardiopulmonary bypass, the remainder of adhesions were taken down. The aorta was crossclamped and a liter of cold blood cardioplegia was given. Further adhesions were then taken down, following which the right coronary artery was opened distally and saphenous vein anastomosed here. Following this, the diagonal was opened and radial anastomosed to it. Finally, the JOHNSON to LAD anastomosis was completed, passing a 1 mm probe distally prior to tying the suture line. Cross-clamp was removed and the partial occluding clamp placed and a single venous anastomosis performed on the aortic root and marked with a ring. To the angeles of this, the radial artery was placed, following which the partial occluding clamp was removed. The patient was then weaned from cardiopulmonary bypass after a single suture was placed in the toe of the diagonal anastomosis. Mediastinal and left pleural drains were placed, following which the sternum was reapproximated with #7 interrupted wire using vancomycin paste on the sternal edges, platelet-rich blood and platelet-poor plasma. Subcutaneous tissue and skin were closed in layers. Job ID: [id number]
[2019-08-18] MEDS: Potassium Chloride 20 MEQ/100 ML PREMIX BAG IVPB PRN (07:15)
[2019-08-18] MEDS: Carvedilol 6.25 MG TAB PO SCH ×2 (08:04→17:41)
[2019-08-18] MEDS: Losartan 25 MG TAB PO SCH (08:05)
[2019-08-18] MEDS: Famotidine 20 MG TAB PO SCH ×2 (08:05→20:46)
[2019-08-18] MEDS: Aspirin 325 mg Enteric Coated Tablet PO SCH (08:05)
[2019-08-18] MEDS: Fluconazole 100 MG TAB PO SCH (08:05)
[2019-08-18] MEDS ORDERED: Ondansetron PF 4 MG/2 ML Vial IVP PRN (08:45)
[2019-08-18] MEDS ORDERED: Aspirin 325 MG TAB PO SCH (09:00)
[2019-08-18] MEDS ORDERED: Prevnar 13-Val Conj/PF 0.5 ML SYRINGE IM ONE (09:00)
[2019-08-18 10:53] LABS: Actual Bicarbonate (HCO3a) 24.3 mEq/L (22-28); Analyzer IN Cardio OR; Base Excess (BEa) 0.1 mEq/L (-2.0 to +3.0); CO2 Tension 37.8 mmHg (35.0-45.0); Calcium, Ionized 1.12 mmol/L (1.12-1.30); Carboxyhemoglobin (COHb) 0.3 gm% (0.0-3.0); Hemoglobin (Hb) 11.1 g/dL (12.0-16.0); O2 Tension (PaO2), arterial 361.3 mmHg (> 80.0); Potassium - ABG Lab 3.61 mmol/L (3.70-5.30); pH, Arterial 7.43 (7.35-7.45)
[2019-08-18 10:55] LABS: Actual Bicarbonate (HCO3a) 21.6 mEq/L (22-28); Base Excess (BEa) -2.5 mEq/L (-2.0 to +3.0); CO2 Tension 35.1 mmHg (35.0-45.0); Carboxyhemoglobin (COHb) 0.3 gm% (0.0-3.0); Hemoglobin (Hb) 11.2 g/dL (12.0-16.0); O2 Tension (PaO2), arterial 308.7 mmHg (> 80.0); pH, Arterial 7.41 (7.35-7.45)
[2019-08-18 10:57] LABS: Analyzer IN Cardio OR; Potassium - ABG Lab 3.76 mmol/L (3.70-5.30)
[2019-08-18 10:58] LABS: Actual Bicarbonate (HCO3a) 22.6 mEq/L (22-28); Base Excess (BEa) -1.1 mEq/L (-2.0 to +3.0); CO2 Tension 33.2 mmHg (35.0-45.0); O2 Tension (PaO2), arterial 495.7 mmHg (> 80.0); pH, Arterial 7.45 (7.35-7.45)
[2019-08-18 10:59] LABS: Analyzer IN Cardio OR; Calcium, Ionized 0.97 mmol/L (1.12-1.30); Carboxyhemoglobin (COHb) 0.1 gm% (0.0-3.0); Hemoglobin (Hb) 7.8 g/dL (12.0-16.0); Potassium - ABG Lab 3.82 mmol/L (3.70-5.30)
[2019-08-18 11:01] LABS: Actual Bicarbonate (HCO3a) 24.1 mEq/L (22-28); Base Excess (BEa) 0.7 mEq/L (-2.0 to +3.0); Carboxyhemoglobin (COHb) 0.3 gm% (0.0-3.0); Hemoglobin (Hb) 7.5 g/dL (12.0-16.0); O2 Tension (PaO2), arterial 391.5 mmHg (> 80.0); pH, Arterial 7.48 (7.35-7.45)
[2019-08-18 11:02] LABS: Calcium, Ionized 0.94 mmol/L (1.12-1.30); Potassium - ABG Lab 4.21 mmol/L (3.70-5.30)
[2019-08-18 11:08] LABS: Analyzer IN Cardio OR
[2019-08-18 11:11] LABS: Base Excess 2.5 mEq/L (-2.0 to +3.0); Hemoglobin (Hb) 7.6 g/dL (11.7-16.1); pH (venous) 7.44 (7.32-7.43)
[2019-08-18 11:12] LABS: Calcium, Ionized 0.97 mmol/L (1.16-1.32); Potassium - ABG Lab 4.46 mmol/L (3.70-5.30); Sodium 136.9 mmol/L (133-146)
[2019-08-18 11:13] LABS: Actual Bicarbonate (HCO3a) 23.8 mEq/L (22-28); Analyzer IN Cardio OR; Base Excess (BEa) -0.4 mEq/L (-2.0 to +3.0); CO2 Tension 36.4 mmHg (35.0-45.0); Calcium, Ionized 0.97 mmol/L (1.12-1.30); Carboxyhemoglobin (COHb) 0.6 gm% (0.0-3.0); Hemoglobin (Hb) 7.5 g/dL (12.0-16.0); O2 Tension (PaO2), arterial 376.6 mmHg (> 80.0); pH, Arterial 7.43 (7.35-7.45)
[2019-08-18 11:17] LABS: pH, Arterial 7.41 (7.35-7.45)
[2019-08-18 11:18] LABS: O2 Tension (PaO2), arterial 546.2 mmHg (> 80.0)
[2019-08-18 11:19] LABS: Actual Bicarbonate (HCO3a) 22.3 mEq/L (22-28); Analyzer IN Cardio OR; Calcium, Ionized 1.02 mmol/L (1.12-1.30); Carboxyhemoglobin (COHb) 0.1 gm% (0.0-3.0); Hemoglobin (Hb) 9.8 g/dL (12.0-16.0); Potassium - ABG Lab 3.67 mmol/L (3.70-5.30)
--- NOTE | 2019-08-18 11:55 | RAD ---
CHEST 1 VIEW: INDICATION: History of open heart surgery. COMPARISON: Prior exam dated 08/17/2019. FINDINGS: Midline sternotomy changes and mediastinal drains are similar-appearing. Left thoracostomy tube is s table. Right subclavian central venous catheter is similar-appearing. There is improved aeration of the right lung base. There is some subsegmental volume loss in the left lower lobe. Cardiomegaly p ersists. No pneumothorax is evident. IMPRESSION: 1. Improved aeration of the right lung base with increased subsegmental atelectasis of the left lowe r lobe. 2. Stable cardiomegaly. 3. Stable mediastinal drain and left-sided thoracostomy tube. 4. Stable right subclavian central venous catheter. POS: [facility]
--- NOTE | 2019-08-18 12:32 | PDOC.CPN ---
- Subjective Date: 08/18/19 Time: 12:30 - Review of Systems General: reports: weight/appetite/sleep changes, night sweats. denies: fever/ chills, fatigue Respiratory: denies: cough, congestion, shortness of breath Cardiovascular: denies: chest pain, palpitation, edema, paroxysmal nocturnal dyspnea, orthopnea Gastrointestinal: denies: nausea, vomiting, diarrhea, constipation, abd pain, GI bleeding Musculoskeletal: reports: tenderness Neurological: denies: numbness, weakness - Objective Allergies/Adverse Reactions: Allergies Allergy/AdvReac Type Severity Reaction Status Date / Time No Known Allergies Allergy Verified 08/13/19 10:20 Visit Medications: Current Medications Acetaminophen (Tylenol) 650 mg PO Q6H PRN PRN Reason: Headache/Fever or Pain Hydrocodone Bitart/Acetaminophen ([place] 5/325) 1 tab PO Q4H PRN PRN Reason: Moderate Pain (4-6) Hydrocodone Bitart/Acetaminophen ([place] 5/325) 2 tab PO Q4H PRN PRN Reason: Severe Pain (7-10) Last Admin: 08/18/19 10:17 Dose: 2 tab Al Hydroxide/Mg Hydroxide (Maalox) 30 ml PO Q4H PRN PRN Reason: Indigestion Albuterol/Ipratropium (Duoneb) 3 ml NEB [id number] PRN PRN Reason: Respiratory Distress Aspirin (Ecotrin) 325 mg PO DAILY [facility] Last Admin: 08/18/19 08:05 Dose: 325 mg Bisacodyl (Dulcolax) 10 mg PO Q12H PRN PRN Reason: Constipation Bisacodyl (Dulcolax) 10 mg AR Q12H PRN PRN Reason: Constipation Carvedilol (Coreg) 6.25 mg PO BID-[facility] Last Admin: 08/18/19 08:04 Dose: 6.25 mg Famotidine (Pepcid) 20 mg PO BID [facility] Last Admin: 08/18/19 08:05 Dose: 20 mg Fentanyl (Sublimaze) 50 mcg SLOW IVP Q2H PRN PRN Reason: Severe Pain (7-10) Stop: 08/19/19 11:41 Fluconazole (Diflucan) 100 mg PO DAILY [facility] Stop: 08/20/19 10:00 Last Admin: 08/18/19 08:05 Dose: 100 mg Furosemide (Lasix) 40 mg PO DAILY [facility] Guaifenesin/Dextromethorphan (Robitussin Dm) 15 ml PO Q4H PRN PRN Reason: Cough Ketorolac Tromethamine (Toradol) 15 mg IVP Q6HR [facility] Stop: 08/20/19 12:01 Last Admin: 08/18/19 05:28 Dose: 15 mg Losartan Potassium (Cozaar) 25 mg PO DAILY [facility] Last Admin: 08/18/19 08:05 Dose: 25 mg Magnesium Hydroxide (Milk Of Magnesium) 30 ml PO Q12H PRN PRN Reason: Constipation Mineral Oil (Fleet Mineral Oil) 133 ml AR DAILYPRN PRN PRN Reason: Constipation Nitroglycerin (Nitrostat) 0.4 mg SL Q5MIN PRN PRN Reason: Chest Pain Ondansetron HCl (Zofran) 4 mg IVP Q6H PRN PRN Reason: Nausea/Vomiting Potassium Chloride (Klor-Con 10) 10 meq PO QAM-[facility] Promethazine HCl (Phenergan) 6.25 mg IM Q4H PRN PRN Reason: Nausea/Vomiting Sodium Chloride (Flush - Normal Saline) 10 ml IVF Q12HR [facility] Last Admin: 08/18/19 08:05 Dose: 10 ml Sodium Chloride (Flush - Normal Saline) 10 ml IVF PRN PRN PRN Reason: Saline Flush Vital Signs & Weight: Vital Signs Temp Pulse Pulse Pulse Resp BP BP 08/18/19 09:10 93 98 129/78 08/18/19 08:04 124/79 08/18/19 08:00 98.0 F 100 20 08/18/19 04:00 97.8 F BP Pulse Ox Pulse Ox Pulse Ox 08/18/19 09:10 136/97 H 97 100 08/18/19 08:04 08/18/19 08:00 98 08/18/19 04:00 Admit Weight 184 lb 4.8 oz Weight 184 lb 4.903 oz - Quality Measures Condition: Coronary Artery Disease CV meds: Beta Dave: Yes, Statin: No (intolerent. takes Praluent.), ASA: Yes - Physical Exam General: alert & oriented x3, appears well Neck: supple neck Cardiac: regular rate and rhythm, no murmur Lungs: clear to auscultation, normal breath sounds Neuro: grossly intact Abdomen: unremarkable Extremities: no cyanosis, no clubbing, no edema Musculoskeletal: normal range of motion - Labs Result Diagrams: 08/18/19 04:10 08/18/19 04:10 - Telemetry Sinus rhythms and dysrhythmias: sinus rhythm - Assessment/Plan Assessment/Plan: 1. CAD. Stable s/p CABG x 3. probably to tele later today after chest tubes out. 2. HTN. stable continue present meds. 3. Dyslipidemia. Resume Praluent upon d/c.
[2019-08-19] MEDS ORDERED: Ketorolac Tromethamine 30 MG/ML VIAL ONE (06:06)
[2019-08-19] MEDS: Ketorolac Tromethamine 30 MG/ML VIAL IVP SCH (06:12)
[2019-08-19] MEDS: Losartan 25 MG TAB PO SCH (08:20)
[2019-08-19] MEDS: Famotidine 20 MG TAB PO SCH ×2 (08:21→20:13)
[2019-08-19] MEDS: Carvedilol 6.25 MG TAB PO SCH ×2 (08:21→17:35)
[2019-08-19] MEDS: Furosemide 40 MG TAB PO SCH (08:21)
[2019-08-19] MEDS: Fluconazole 100 MG TAB PO SCH (08:21)
[2019-08-19] MEDS: Aspirin 325 mg Enteric Coated Tablet PO SCH (08:21)
[2019-08-19] MEDS: Potassium Chloride 10 MEQ TAB PO SCH (08:21)
[2019-08-19] MEDS ORDERED: Olmesartan 5 MG TAB PO SCH (09:00)
[2019-08-19] MEDS: HYDROcodone/Acetaminophen 5/325 mg Tablet PO PRN ×3 (12:23→23:21)
--- NOTE | 2019-08-19 15:49 | PDOC.CPN ---
- Subjective Date: 08/19/19 Time: 12:00 Interval history: The pt seen and examined. No overnight events. No cardiac complaints. She has walked around the nursing station without any cardiac complaints. - Objective Allergies/Adverse Reactions: Allergies Allergy/AdvReac Type Severity Reaction Status Date / Time No Known Allergies Allergy Verified 08/13/19 10:20 Visit Medications: Current Medications Acetaminophen (Tylenol) 650 mg PO Q6H PRN PRN Reason: Headache/Fever or Pain Hydrocodone Bitart/Acetaminophen ([place] 5/325) 1 tab PO Q4H PRN PRN Reason: Moderate Pain (4-6) Last Admin: 08/19/19 12:23 Dose: 1 tab Hydrocodone Bitart/Acetaminophen ([place] 5/325) 2 tab PO Q4H PRN PRN Reason: Severe Pain (7-10) Last Admin: 08/18/19 10:17 Dose: 2 tab Al Hydroxide/Mg Hydroxide (Maalox) 30 ml PO Q4H PRN PRN Reason: Indigestion Albuterol/Ipratropium (Duoneb) 3 ml NEB [id number] PRN PRN Reason: Respiratory Distress Aspirin (Ecotrin) 325 mg PO DAILY [facility] Last Admin: 08/19/19 08:21 Dose: 325 mg Bisacodyl (Dulcolax) 10 mg PO Q12H PRN PRN Reason: Constipation Bisacodyl (Dulcolax) 10 mg SC Q12H PRN PRN Reason: Constipation Carvedilol (Coreg) 6.25 mg PO BID-[facility] Last Admin: 08/19/19 08:21 Dose: 6.25 mg Famotidine (Pepcid) 20 mg PO BID [facility] Last Admin: 08/19/19 08:21 Dose: 20 mg Fluconazole (Diflucan) 100 mg PO DAILY [facility] Stop: 08/20/19 10:00 Last Admin: 08/19/19 08:21 Dose: 100 mg Furosemide (Lasix) 40 mg PO DAILY [facility] Last Admin: 08/19/19 08:21 Dose: 40 mg Guaifenesin/Dextromethorphan (Robitussin Dm) 15 ml PO Q4H PRN PRN Reason: Cough Losartan Potassium (Cozaar) 25 mg PO DAILY [facility] Last Admin: 08/19/19 08:20 Dose: 25 mg Magnesium Hydroxide (Milk Of Magnesium) 30 ml PO Q12H PRN PRN Reason: Constipation Mineral Oil (Fleet Mineral Oil) 133 ml SC DAILYPRN PRN PRN Reason: Constipation Nitroglycerin (Nitrostat) 0.4 mg SL Q5MIN PRN PRN Reason: Chest Pain Ondansetron HCl (Zofran) 4 mg IVP Q6H PRN PRN Reason: Nausea/Vomiting Potassium Chloride (Klor-Con 10) 10 meq PO QAM-[facility] Last Admin: 08/19/19 08:21 Dose: 10 meq Promethazine HCl (Phenergan) 6.25 mg IM Q4H PRN PRN Reason: Nausea/Vomiting Sodium Chloride (Flush - Normal Saline) 10 ml IVF Q12HR [facility] Last Admin: 08/19/19 08:21 Dose: 10 ml Sodium Chloride (Flush - Normal Saline) 10 ml IVF PRN PRN PRN Reason: Saline Flush Vital Signs & Weight: Vital Signs Temp Pulse Pulse Pulse Resp BP BP 08/19/19 13:58 87 90 148/75 H 140/81 08/19/19 11:08 97.9 F 93 18 08/19/19 09:40 95 99 141/69 H 137/71 08/19/19 07:04 99.0 F 102 H 17 08/19/19 06:58 08/19/19 03:55 99.0 F 100 18 BP Pulse Ox 08/19/19 13:58 08/19/19 11:08 138/71 95 08/19/19 09:40 08/19/19 07:04 156/81 H 94 L 08/19/19 06:58 94 L 08/19/19 03:55 142/71 H 94 L Admit Weight 184 lb 4.8 oz Weight 182 lb 5 oz - Quality Measures Condition: Coronary Artery Disease CV meds: Beta Dave: Yes, Statin: No (intolerent. takes Praluent.), ASA: Yes - Physical Exam General: alert & oriented x3 HEENT: mucus membranes moist Neck: supple neck Cardiac: regular rate and rhythm, S1/S2 Lungs: clear to auscultation Neuro: cranial nerve 2-12 intact Extremities: no edema - Labs Result Diagrams: 08/18/19 04:10 08/18/19 04:10 - Telemetry Sinus rhythms and dysrhythmias: sinus rhythm - Assessment/Plan Assessment/Plan: 1. CAD with s/p CABG x 3 on 08/17/2019 - stable; on coreg, Losartan, ASA; will resume Praluent upon d/c. 2. HTN. stable continue present meds. 3. Dyslipidemia. Resume Praluent upon d/c. MAR reviewed Pt. seen and eval. by me. I agree with the A/P by the [employer].She has done very well post CABG. If she remains stable tonight then home tomorrow.chest clear, RRR. gjm
[2019-08-20] MEDS: HYDROcodone/Acetaminophen 5/325 mg Tablet PO PRN ×2 (04:00→10:07)
[2019-08-20] MEDS: Famotidine 20 MG TAB PO SCH (08:50)
[2019-08-20] MEDS: Losartan 25 MG TAB PO SCH (08:50)
[2019-08-20] MEDS: Fluconazole 100 MG TAB PO SCH (08:50)
[2019-08-20] MEDS: Potassium Chloride 10 MEQ TAB PO SCH (08:50)
[2019-08-20] MEDS: Furosemide 40 MG TAB PO SCH (08:51)
[2019-08-20] MEDS: Aspirin 325 mg Enteric Coated Tablet PO SCH (08:51)
[2019-08-20] MEDS: Carvedilol 6.25 MG TAB PO SCH (08:51)
[2019-08-20 08:59] VITALS: BP 140/71; TEMP 98.5
--- NOTE | 2019-08-20 14:20 | PDOC.CPN ---
- Subjective Date: 08/20/19 Time: 09:00 Interval history: The pt seen and examined. No overnight events. No cardiac complaints. - Objective Allergies/Adverse Reactions: Allergies Allergy/AdvReac Type Severity Reaction Status Date / Time No Known Allergies Allergy Verified 08/13/19 10:20 Vital Signs & Weight: Vital Signs Temp Pulse Resp BP Pulse Ox 08/20/19 08:00 98.5 F 106 H 15 140/71 94 L 08/20/19 04:22 97 F L 100 14 147/84 H 94 L Admit Weight 184 lb 4.8 oz Weight 180 lb 4 oz - Quality Measures Condition: Coronary Artery Disease CV meds: Beta Dave: Yes, Statin: No (intolerent. takes Praluent.), ASA: Yes - Physical Exam General: alert & oriented x3 HEENT: mucus membranes moist Neck: supple neck Cardiac: regular rate and rhythm, S1/S2 Lungs: clear to auscultation Neuro: cranial nerve 2-12 intact - Labs Result Diagrams: 08/18/19 04:10 08/18/19 04:10 - Telemetry Sinus rhythms and dysrhythmias: sinus rhythm - Assessment/Plan Assessment/Plan: 1. CAD with s/p CABG x 3 on 08/17/2019 with JOHNSON-LAD, radial-diag, SVG-RCA - stable; on coreg, Losartan, ASA; will resume Praluent upon d/c. 2. HTN. stable continue present meds. 3. Dyslipidemia. Resume Praluent upon d/c. MAR reviewed * Plan for d/c home today * The pt will f/u with Dr Goncalves' office in 2 wks
--- NOTE | 2019-08-21 06:52 | DIS ---
DATE OF ADMISSION: 08/17/2019 DATE OF DISCHARGE: 08/20/2019 HOSPITAL COURSE: The patient was admitted for elective coronary bypass grafting, which was undertaken on 08/16. She had three-vessel bypass graft to the LAD, diagonal, and right coronary artery utilizing a radial artery graft. She had a history of pericarditis and indeed had findings of pericardial adhesions throughout her pericardium. Her postoperative course was uneventful, and she will be discharged home on her admitting medicines as well as a prescription for tramadol. Discharge and followup instructions were given. Job ID: [id number]
== END 2019-08-20 12:59 | disposition home or self-care (01) | DRG 236 ==
LOC: SURG A 08-17 05:54 → CCU 08-17 07:58 → 2NO 08-18 17:21
PROVIDERS: ADMIT Thoracic Surgery (Cardiothoracic Vascular Surgery); ATTEND Thoracic Surgery (Cardiothoracic Vascular Surgery)
PROC: 02100Z9 Bypass Coronary Artery, One Artery from Left Internal Mammary, Open Approach (ICD-10-PCS; principal; 2019-08-17)
PROC: 02100AW Bypass Coronary Artery, One Artery from Aorta with Autologous Arterial Tissue, Open Approach (ICD-10-PCS; 2019-08-17)
PROC: 021009W Bypass Coronary Artery, One Artery from Aorta with Autologous Venous Tissue, Open Approach (ICD-10-PCS; 2019-08-17)
PROC: 06BQ0ZZ Excision of Left Saphenous Vein, Open Approach (ICD-10-PCS; 2019-08-17)
PROC: 03BC0ZZ Excision of Left Radial Artery, Open Approach (ICD-10-PCS; 2019-08-17)
PROC: 5A1221Z Performance of Cardiac Output, Continuous (ICD-10-PCS; 2019-08-17)
DX: I25.10 Atherosclerotic heart disease of native coronary artery without angina pectoris (principal); I31.0 Chronic adhesive pericarditis; I10 Essential (primary) hypertension; E78.5 Hyperlipidemia, unspecified; Z11.59 Encounter for screening for other viral diseases
CPT/HCPCS: 36416; 36430; 71045; 80048; 82805; 85025; 85027; 85610; 85730; 86850; 86900; 86901; 87635; 93005; 93010; 93798; J0690; J1100; J1642; J1644; J1815; J1885; J2001; J2250; J2405; J2440; J2550; J2720; J3010; J3370; J3480; J3490; P9045; S0017; S0028; U0003

== ENCOUNTER 2020-03-06 08:31 | Outpatient (CLI) | payer MEDICARE ==
--- NOTE | 2020-03-06 09:04 | MMO ---
Bilateral MAMMO Bilat Screen [facility]. CLINICAL HISTORY: Patient is 65 years old and is seen for screening. The patient has no family history of breast cancer. The patient has no personal history of cancer. The patient has a history of bilateral mastopexy in 2017. VIEWS: The views performed were: bilateral craniocaudal with tomosynthesis and bilateral mediolateral oblique with tomosynthesis. FILMS COMPARED: The present examination has been compared to prior imaging studies performed at [facility] on 01/13/2014, 07/31/2016 and 01/14/2018. This study has been interpreted with the assistance of computer-aided detection. MAMMOGRAM FINDINGS: The breasts are extremely dense, which may lower the sensitivity of mammography. There are no suspicious masses, suspicious calcifications, or new areas of architectural distortion. IMPRESSION: THERE IS NO MAMMOGRAPHIC EVIDENCE OF MALIGNANCY. A ROUTINE FOLLOW-UP MAMMOGRAM IN 1 YEAR IS RECOMMENDED. THE RESULTS OF THIS EXAM WERE SENT TO THE PATIENT. ACR BI-RADS Category 1 - Negative MAMMOGRAPHY NOTE: 1. A negative mammogram report should not delay a biopsy if a dominant of clinically suspicious mass is present. 2. Approximately 10% to 15% of breast cancers are not detected by mammography. 3. Adenosis and dense breasts may obscure an underlying neoplasm. Reported by: BECKY LOPEZ MD Electonically Signed: [id number]
== END 2020-03-06 08:32 | disposition home or self-care (01) ==
LOC: BICMAMMO 08:31
PROVIDERS: ATTEND Family Medicine
DX: Z12.31 Encounter for screening mammogram for malignant neoplasm of breast (principal); Z98.890 Other specified postprocedural states
CPT/HCPCS: 77063; 77067

== ENCOUNTER 2021-12-19 09:06 | Outpatient (CLI) | payer MEDICARE | END 2021-12-19 09:07 | disposition home or self-care (01) | LOC: CT 09:06 | PROVIDERS: ATTEND Thoracic Surgery (Cardiothoracic Vascular Surgery) | DX: I25.10 Atherosclerotic heart disease of native coronary artery without angina pectoris (principal); I65.21 Occlusion and stenosis of right carotid artery | CPT/HCPCS: 70498; 82565; Q9967 ==

== ENCOUNTER 2022-02-04 09:30 | Inpatient (IN) | payer MEDICARE ==
[2022-02-06] MEDS ORDERED: niCARdipine 25 MG/10 ML VIAL ONE (06:32)
[2022-02-06] MEDS ORDERED: Heparin 10,000 UNITS/ 10 ML VIAL ONE (06:32)
[2022-02-06] MEDS ORDERED: fentaNYL PF 100 MCG/2 ML SYRINGE ONE (06:32)
[2022-02-06] MEDS ORDERED: Bupivacaine 0.25% HCL 30 ML VIAL ONE (06:42)
[2022-02-06] MEDS ORDERED: Heparin 5,000 UNITS/ML VIAL ONE (06:42)
[2022-02-06] MEDS ORDERED: Protamine Sulfate 50 MG/5 ML VIAL ONE (06:42)
[2022-02-06 06:52] LABS: SARS-CoV-2 NAA Rapid Test Not Detected (NotDetected)
[2022-02-06] MEDS ORDERED: Dexamethasone 20 MG/5 ML VIAL ONE (07:17)
[2022-02-06] MEDS ORDERED: NEOSTIGMINE 3 MG/3 ML SYR 3 MG/3 ML SYRINGE ONE (07:17)
[2022-02-06] MEDS ORDERED: PROPOFOL 200 MG/20 ML VIAL ONE (07:17)
[2022-02-06] MEDS ORDERED: PHENYLEPHRINE-NS 100 MCG/ML 10 ML SYRINGE ONE (07:17)
[2022-02-06] MEDS ORDERED: Rocuronium Bromide 10 MG/ML (10ML VIAL) ONE (07:17)
[2022-02-06] MEDS ORDERED: Glycopyrrolate 0.2 MG/ML 5 ML SYRINGE ONE (07:17)
[2022-02-06] MEDS ORDERED: Sodium Chloride 0.9% 100 ML ONE ×2 (07:29→15:50)
[2022-02-06] MEDS ORDERED: CEFAZOLIN 2 GM VIAL ONE ×2 (07:29→15:50)
[2022-02-06] MEDS ORDERED: FENTANYL 50 MCG/ML 1 ML VIAL ONE ×4 (09:51→16:24)
[2022-02-06] MEDS ORDERED: Labetalol HCl 100 MG/20 ML VIAL ONE (10:00)
[2022-02-06] MEDS ORDERED: Ondansetron PF 4 MG/2 ML Vial ONE (10:55)
[2022-02-06] MEDS ORDERED: Acetaminophen 325 MG TAB PO PRN (12:13)
[2022-02-06] MEDS ORDERED: HYDROcodone/Acetaminophen 5/325 mg Tablet PO PRN (12:13)
[2022-02-06] MEDS ORDERED: Ondansetron PF 4 MG/2 ML Vial IVP PRN (12:13)
[2022-02-06] MEDS ORDERED: niCARdipine 25 MG in Sodium Chloride 0.9% 250 ML 250 ML IVPB PRN (12:13)
[2022-02-06] MEDS ORDERED: FENTANYL 50 MCG/ML 1 ML VIAL SLOW IVP PRN ×2 (12:41→12:42)
[2022-02-06] MEDS ORDERED: Phenylephrine 40 MG/NS 250 ML 250 ML IVPB PRN (12:42)
[2022-02-06] MEDS ORDERED: Melatonin 3 MG TAB PO PRN (12:43)
[2022-02-06] MEDS: CEFAZOLIN 2 GM in Sodium Chloride 0.9% 100 ML IVPB SCH (15:55)
[2022-02-06] MEDS ORDERED: Promethazine HCl 25 MG/ML VIAL ONE (17:33)
[2022-02-06] MEDS ORDERED: Losartan/Hydrochlorothiazide 100 mg/25 mg Tablet PO SCH (19:45)
[2022-02-06] MEDS ORDERED: Metoprolol Tartrate 50 MG TAB PO SCH (21:00)
[2022-02-06] MEDS: busPIRone HCl 5 MG TAB PO SCH (21:28)
[2022-02-06] MEDS: Sodium Chloride 0.9% 1,000 ML IV SCH ×2 (21:28→21:36)
[2022-02-06] MEDS: HYDROcodone/Acetaminophen 5/325 mg Tablet PO PRN (21:31)
[2022-02-06 22:41] VITALS: BMI 29.8
[2022-02-07] MEDS: CEFAZOLIN 2 GM in Sodium Chloride 0.9% 100 ML IVPB SCH ×2 (00:23→08:39)
[2022-02-07] MEDS: HYDROcodone/Acetaminophen 5/325 mg Tablet PO PRN (01:42)
[2022-02-07 07:32] VITALS: TEMP 97.9
[2022-02-07] MEDS: busPIRone HCl 5 MG TAB PO SCH (08:39)
[2022-02-07] MEDS: Sodium Chloride 0.9% 1,000 ML IV SCH (08:40)
[2022-02-07] MEDS ORDERED: Losartan/Hydrochlorothiazide 100 mg/25 mg Tablet PO SCH (09:00)
[2022-02-07] MEDS ORDERED: Aspirin Chewable 81 MG TAB PO SCH (09:00)
== END 2022-02-07 10:55 | disposition home or self-care (01) | DRG 39 ==
LOC: SURG A 02-06 05:50 → IMCU/EMU 02-06 20:13
PROVIDERS: ADMIT Thoracic Surgery (Cardiothoracic Vascular Surgery); ATTEND Thoracic Surgery (Cardiothoracic Vascular Surgery)
PROC: 03CH0ZZ Extirpation of Matter from Right Common Carotid Artery, Open Approach (ICD-10-PCS; principal; 2022-02-06)
PROC: 03UH0KZ Supplement Right Common Carotid Artery with Nonautologous Tissue Substitute, Open Approach (ICD-10-PCS; 2022-02-06)
DX: I65.21 Occlusion and stenosis of right carotid artery (principal); I25.10 Atherosclerotic heart disease of native coronary artery without angina pectoris; Z20.822 Contact with and (suspected) exposure to COVID-19; Z95.1 Presence of aortocoronary bypass graft; Z90.710 Acquired absence of both cervix and uterus; Z79.899 Other long term (current) drug therapy; Z79.82 Long term (current) use of aspirin
CPT/HCPCS: C1768; J1100; J1644; J2405; J2550; J2704; J2720; J3010; J3490; S0020; U0002

== ENCOUNTER 2022-02-04 09:41 | Outpatient (CLI) | payer MEDICARE ==
[2022-02-04 10:42] LABS: Hemoglobin 12.6 g/dL (12.0-15.5); Mean Corpuscular HGB CONC 33.5 g/dL (32.0-36.0); Mean Corpuscular Hemoglobin 29.2 pg (27.0-33.0); Mean Corpuscular Volume 87.2 fl (81.6-98.3); Platelet Count 327 10x3/uL (150-450); Red Blood Cell (RBC) Count 4.31 10x6/uL (3.90-5.03); White Blood Cell (WBC) Count 10.2 10x3/uL (3.5-10.5)
[2022-02-04 11:11] LABS: Anion Gap 14 mmol/L (10-20); BUN (Urea Nitrogen) 19 mg/dL (9.8-20.1); Calc. Creatinine Clearance 0 mL/min (70-130); Calcium 9.6 mg/dL (7.8-10.44); Carbon Dioxide 28 mmol/L (23-31); Chloride 102 mmol/L (98-107); Estimated GFR 84; Glucose 102 mg/dL (80-115); Sodium 140 mmol/L (136-145)
== END 2022-02-04 09:42 | disposition home or self-care (01) ==
LOC: LABBT 09:41
PROVIDERS: ATTEND Thoracic Surgery (Cardiothoracic Vascular Surgery)
DX: Z01.812 Encounter for preprocedural laboratory examination (principal); I65.29 Occlusion and stenosis of unspecified carotid artery
CPT/HCPCS: 80048; 85027

== ENCOUNTER 2022-05-22 15:33 | Outpatient (CLI) | payer MEDICARE | END 2022-05-22 15:34 | disposition home or self-care (01) | LOC: BICRAD 15:33 | PROVIDERS: ATTEND Nurse Practitioner Family | DX: U09.9 Post COVID-19 condition, unspecified (principal) | CPT/HCPCS: 71046 ==

== ENCOUNTER 2023-01-27 10:46 | Outpatient (CLI) | payer MEDICARE | END 2023-01-27 10:47 | disposition home or self-care (01) | LOC: BICMAMMO 10:46 | PROVIDERS: ATTEND Nurse Practitioner Family | DX: Z12.31 Encounter for screening mammogram for malignant neoplasm of breast (principal); Z98.890 Other specified postprocedural states | CPT/HCPCS: 77063; 77067 ==

== ENCOUNTER 2023-10-11 20:28 | Emergency (ER) | payer MEDICARE, OTHER ==
[~2023-10-11 20:28] MED LIST changes: -Iopamidol 370 76% 100 ML VIAL ONE; +Iopamidol-370 76% 500 ML MDV (1 ML CHARGE) ONE
[2023-10-11 21:12] LABS: #Basophils 0.05 10x3/uL (0.0-0.2); %Basophils 0.5 % (0.0-1.0); %Eosinophils 1.7 % (0.0-10.0); %Lymphocytes 32.5 % (21.0-51.0); %Monocytes 7.9 % (0.0-10.0); %Neutrophils 57.1 % (42.0-75.0); Hematocrit 37.6 % (36.0-47.0); Hemoglobin 12.7 g/dL (12.0-16.0); Mean Corpuscular HGB CONC 33.8 g/dL (32.0-36.0); Mean Corpuscular Hemoglobin 28.9 pg (27.0-31.0); Mean Corpuscular Volume 85.6 fL (78.0-98.0); Mean Platelet Volume 9.1 fL (7.4-10.4); Platelet Count 281 10x3/uL (130-400); RBC Distribution Width 14.2 % (11.5-14.5); Red Blood Cell (RBC) Count 4.39 mill/uL (4.20-5.40)
[2023-10-11 21:19] LABS: Bacteria/HPF None Seen HPF (None Seen); Bilirubin Negative (Negative); Blood, Urine Negative (Negative); CAUTI Indications for Culture Pelvic or flank pain; Clarity Clear (Clear); Glucose, Urine (Dipstick) Normal (Negative); Ketone, Urine Negative (Negative); Leukocyte 75 Leu/uL (Negative); Nitrite Negative (Negative); Protein, Urine (Dipstick) Negative (Neg-Trace); RBC/HPF 0-3 HPF (0-3); Specific Gravity, Urine 1.015 (1.002-1.036); Squamous Epithelial 0-3 HPF (0-3); Urobilinogen Normal mg/dL (Less than 2); pH, Urine 6.5 (5.0-9.0)
[2023-10-11 21:21] LABS: Urine Culture Reflex No No
[2023-10-11 21:26] LABS: ALT (SGPT) 19 U/L (8-55); AST (SGOT) 22 U/L (5-34); Albumin 3.9 g/dL (3.4-4.8); Alkaline Phosphatase 72 U/L (40-110); Anion Gap 15 mmol/L (10-20); BUN (Urea Nitrogen) 25 mg/dL (9.8-20.1); Bilirubin, Total 0.2 mg/dL (0.2-1.2); Calc. Creatinine Clearance 0 mL/min (70-130); Calcium 9.8 mg/dL (7.8-10.44); Carbon Dioxide 24 mmol/L (23-31); Chloride 104 mmol/L (98-107); Estimated GFR 55; Globulin 3.3 g/dL (2.4-3.5); Glucose 103 mg/dL (80-115); PTT 30.5 sec (22.9-36.1); Potassium 3.6 mmol/L (3.5-5.1); Protein, Total 7.2 g/dL (5.8-8.1); Prothrombin Time 12.7 sec (12.0-14.7); Sodium 139 mmol/L (136-145)
[2023-10-11 22:00] LABS: Troponin I Less than 0.010 ng/mL (< 0.028)
[2023-10-11] MEDS ORDERED: Aspirin Chewable 81 MG TAB ONE (22:10)
[2023-10-11] MEDS ORDERED: Magnesium 2 GM/50 ML BAG (IN WATER) ONE (22:10)
== END 2023-10-12 00:30 | disposition home or self-care (01) ==
LOC: ERS 20:28
DX: I49.3 Ventricular premature depolarization (principal); I10 Essential (primary) hypertension; Z79.82 Long term (current) use of aspirin; Z79.899 Other long term (current) drug therapy
CPT/HCPCS: 71045; 71260; 81001; 83735; 83880; 84484; 85610; 85730; 93005; J3475; 80053; 84443; 85025; 96374; Q9967

== ENCOUNTER 2023-12-16 12:23 | Outpatient (CLI) | payer MEDICARE | END 2023-12-16 12:24 | disposition home or self-care (01) | LOC: BICCT 12:23 | PROVIDERS: ATTEND Nurse Practitioner Family | DX: M54.42 Lumbago with sciatica, left side (principal); M47.816 Spondylosis without myelopathy or radiculopathy, lumbar region; M47.817 Spondylosis without myelopathy or radiculopathy, lumbosacral region | CPT/HCPCS: 72131 ==

== ENCOUNTER 2024-02-12 21:11 | Inpatient (IN) | payer MEDICARE ==
[2024-02-12] MEDS ORDERED: Aspirin Chewable 81 MG TAB ONE ×2 (21:46→21:47)
[2024-02-12 21:49] LABS: #Basophils 0.05 10x3/uL (0.0-0.2); %Basophils 0.5 % (0.0-1.0); %Eosinophils 1.6 % (0.0-10.0); %Lymphocytes 27.4 % (21.0-51.0); %Monocytes 6.8 % (0.0-10.0); %Neutrophils 63.4 % (42.0-75.0); Hematocrit 36.5 % (36.0-47.0); Hemoglobin 12.2 g/dL (12.0-16.0); Mean Corpuscular HGB CONC 33.4 g/dL (32.0-36.0); Mean Corpuscular Hemoglobin 28.9 pg (27.0-31.0); Mean Corpuscular Volume 86.5 fL (78.0-98.0); Mean Platelet Volume 8.9 fL (7.4-10.4); Platelet Count 262 10x3/uL (130-400); RBC Distribution Width 14.3 % (11.5-14.5); Red Blood Cell (RBC) Count 4.22 mill/uL (4.20-5.40)
[2024-02-12 22:04] LABS: ALT (SGPT) 16 U/L (8-55); AST (SGOT) 18 U/L (5-34); Albumin 3.8 g/dL (3.4-4.8); Alkaline Phosphatase 75 U/L (40-110); Anion Gap 15 mmol/L (10-20); BUN (Urea Nitrogen) 26 mg/dL (9.8-20.1); Bilirubin, Total 0.2 mg/dL (0.2-1.2); Calc. Creatinine Clearance 0 mL/min (70-130); Calcium 9.1 mg/dL (7.8-10.44); Carbon Dioxide 23 mmol/L (23-31); Chloride 103 mmol/L (98-107); Estimated GFR 78; Globulin 2.9 g/dL (2.4-3.5); Glucose 108 mg/dL (80-115); Potassium 3.7 mmol/L (3.5-5.1); Protein, Total 6.7 g/dL (5.8-8.1); Sodium 137 mmol/L (136-145)
[2024-02-12 22:05] LABS: Bacteria/HPF None Seen HPF (None Seen); Bilirubin Negative (Negative); Blood, Urine Negative (Negative); CAUTI Indications for Culture Alt mental st,lethar; Clarity Clear (Clear); Glucose, Urine (Dipstick) Normal (Negative); Ketone, Urine Negative (Negative); Leukocyte 25 Leu/uL (Negative); Nitrite Negative (Negative); Protein, Urine (Dipstick) Negative (Neg-Trace); RBC/HPF 0-3 HPF (0-3); Squamous Epithelial 0-3 HPF (0-3); Urobilinogen Normal mg/dL (Less than 2); WBC/HPF 0-3 HPF (0-3)
[2024-02-12 22:09] LABS: Troponin I 0.013 ng/mL (< 0.028)
[2024-02-12 22:14] LABS: Urine Culture Reflex No No
[2024-02-12] MEDS ORDERED: Ondansetron ODT 4 MG TAB PO PRN (22:38)
[2024-02-12] MEDS ORDERED: Ondansetron PF 4 MG/2 ML Vial IVP PRN (22:38)
[2024-02-12] MEDS ORDERED: Evolocumab [Repatha Sureclick] 140 MG/ML Pen.Injctr SC SCH (22:45)
[2024-02-13 00:43] VITALS: BMI 29.7
[2024-02-13] MEDS: traMADol HCl 50 MG TAB PO PRN (00:50)
[2024-02-13] MEDS: hydrALAZINE 25 MG TAB PO PRN (00:51)
[2024-02-13 01:39] LABS: Troponin I 0.069 ng/mL (< 0.028)
[2024-02-13 04:32] LABS: #Basophils 0.03 10x3/uL (0.0-0.2); %Basophils 0.3 % (0.0-1.0); %Eosinophils 1.5 % (0.0-10.0); %Lymphocytes 31.2 % (21.0-51.0); %Monocytes 7.7 % (0.0-10.0); Hematocrit 34.3 % (36.0-47.0); Hemoglobin 11.4 g/dL (12.0-16.0); Mean Corpuscular HGB CONC 33.2 g/dL (32.0-36.0); Mean Corpuscular Hemoglobin 28.6 pg (27.0-31.0); Mean Corpuscular Volume 86.2 fL (78.0-98.0); Mean Platelet Volume 9.3 fL (7.4-10.4); Platelet Count 226 10x3/uL (130-400); RBC Distribution Width 14.2 % (11.5-14.5); Red Blood Cell (RBC) Count 3.98 mill/uL (4.20-5.40)
[2024-02-13 04:44] LABS: ALT (SGPT) 13 U/L (8-55); AST (SGOT) 16 U/L (5-34); Albumin 3.5 g/dL (3.4-4.8); Alkaline Phosphatase 61 U/L (40-110); Anion Gap 14 mmol/L (10-20); BUN (Urea Nitrogen) 21 mg/dL (9.8-20.1); Bilirubin, Total 0.2 mg/dL (0.2-1.2); Calc. Creatinine Clearance 90 mL/min (70-130); Calcium 9.2 mg/dL (7.8-10.44); Carbon Dioxide 25 mmol/L (23-31); Chloride 103 mmol/L (98-107); Estimated GFR 80; Globulin 2.9 g/dL (2.4-3.5); Glucose 102 mg/dL (80-115); Potassium 3.5 mmol/L (3.5-5.1); Protein, Total 6.4 g/dL (5.8-8.1); Sodium 138 mmol/L (136-145)
[2024-02-13 04:48] LABS: Troponin I 0.069 ng/mL (< 0.028)
[2024-02-13] MEDS: Nitroglycerin 2% Ointment 1 INCH/1 GM Packet TOP SCH (05:49)
[2024-02-13] MEDS: Losartan 25 MG TAB PO SCH (08:20)
[2024-02-13] MEDS: Aspirin Chewable 81 MG TAB PO SCH (08:20)
[2024-02-13] MEDS: Carvedilol 6.25 MG TAB PO SCH (08:20)
[2024-02-13] MEDS: Amlodipine 5 MG TAB PO SCH (08:20)
[2024-02-13] MEDS: Ezetimibe 10 MG TAB PO SCH (08:20)
[2024-02-13] MEDS: Enoxaparin 40 MG (0.4 mL) SYRINGE SC SCH (08:21)
[2024-02-13] MEDS: Famotidine 20 MG TAB PO SCH (08:21)
[2024-02-13] MEDS: Hydrochlorothiazide 25 MG TAB PO SCH (08:21)
[2024-02-13] MEDS: busPIRone HCl 5 MG TAB PO SCH (08:21)
[2024-02-13] MEDS: Famotidine/PF 20 mg/2ml Vial SLOW IVP SCH (08:22)
[2024-02-13] MEDS: Acetaminophen 325 MG TAB PO PRN (12:16)
[2024-02-13] MEDS: Carvedilol 25 MG TAB PO SCH (17:35)
[2024-02-15 03:18] LABS: 24 Hr Creatinine 923.42 mg/24 hr (710-1650); Creatinine, Urine 75.69 mg/dL (47-110)
[2024-02-15 12:30] VITALS: BP 122/76; TEMP 97.1
[2024-02-15] MEDS ORDERED: Losartan 25 MG TAB PO SCH (21:00)
[2024-02-16] MEDS ORDERED: FLU (Fluad Triv) TS24-25 (65UP)/MF59C/PF 45 MCG/0.5 ML Syringe IM ONE (09:00)
[2024-02-19 17:27] LABS: Dopamine Less than 30 pg/mL (0-48); Epinephrine Less than 15 pg/mL (0-62); Metanephrine,Plasma <25.0 pg/mL (0.0-88.0); Norepinephrine 416 pg/mL (0-874); Normetanephrine,Pl 141.2 pg/mL (0.0-285.2)
[2024-02-23 23:37] LABS: Dopamine 24H Ur 129 ug/24 hr (0-510); Dopamine,Ur 106 ug/L (Undefined); Epinephrine 24H Ur Less than 4 ug/24 hr (0-20); Epinephrine,Ur <3 ug/L (Undefined); Norephinephrine 24H U 39 ug/24 hr (0-135); Norephinephrine,Ur 32 ug/L (Undefined)
== END 2024-02-15 13:42 | disposition home or self-care (01) | DRG 282 ==
LOC: ERS 21:11 → OBS 22:36 → OBSVTOIN 02-14 10:36
PROVIDERS: ADMIT Internal Medicine; ATTEND Internal Medicine
DX: I16.0 Hypertensive urgency (principal); I21.A1 Myocardial infarction type 2; E78.5 Hyperlipidemia, unspecified; I25.10 Atherosclerotic heart disease of native coronary artery without angina pectoris; N18.2 Chronic kidney disease, stage 2 (mild); I12.9 Hypertensive chronic kidney disease with stage 1 through stage 4 chronic kidney disease, or unspecified chronic kidney disease; N28.1 Cyst of kidney, acquired; G43.909 Migraine, unspecified, not intractable, without status migrainosus; F41.8 Other specified anxiety disorders; I34.0 Nonrheumatic mitral (valve) insufficiency; Z95.1 Presence of aortocoronary bypass graft; Z90.710 Acquired absence of both cervix and uterus; Z87.891 Personal history of nicotine dependence; Z79.899 Other long term (current) drug therapy; Z79.82 Long term (current) use of aspirin; Z88.8 Allergy status to other drugs, medicaments and biological substances
CPT/HCPCS: 36415; 71045; 76770; 80053; 81001; 82088; 82384; 82533; 82570; 83835; 83880; 84244; 84443; 84484; 85025; 85379; 89190; 93005; 93976; 94760; 96372; G0378; J1650

== ENCOUNTER 2024-12-08 14:10 | Outpatient (CLI) | payer MEDICARE | END 2024-12-08 14:11 | disposition home or self-care (01) | LOC: BICRAD 14:10 | PROVIDERS: ATTEND Nurse Practitioner Family | DX: R05.1 Acute cough (principal); R91.8 Other nonspecific abnormal finding of lung field | CPT/HCPCS: 71046 ==